=== PATIENT | female | born 1970 | race Caucasian/White ===

== ENCOUNTER 2018-01-01 08:15 | Inpatient (IN) | payer SELFPAY ==
[2018-01-01] VITALS (13 sets, daily range): BP systolic 106–128; BP diastolic 65–86
[~2018-01-01] VITALS: Ht 167.6 cm; Wt 64.7 kg
[~2018-01-01 08:15] MED LIST: AMOX1TAB61 PO; FLUC150T PO; FLUC200T PO; HYDR12.53 PO; LEVO75TA PO; METH4TAB2 PO; METR250T PO; MONT4TAB5 PO; TIZA4TAB PO; TRAM50TA PO
[2018-01-01] MEDS ORDERED: IV NORMAL SALINE 1,000ML 1,000 ML IV SCH (08:48)
--- NOTE | 2018-01-01 08:58 | PHYS DOC ---
Past History Past Medical History: Alcoholism, Pancreatitis, Other Past Surgical History: Cholecystectomy, Other Alcohol Use: Heavy Drug Use: None Adult General Chief Complaint Chief Complaint: WITHDRAWL HPI HPI Patient is a 47-year-old female who states that she is an alcoholic and is trying to taper down her drinking and believes that she is in alcohol withdrawal. She says that she was at [facility]'s emergency department 2 days ago and was there for a few hours and then sent home with Librium. She says that she was given Vivitrol recently (2 doses 2 weeks apart). She is concerned that her eyes appear to be jaundiced which she states has never happened before. She also has a history of chronic pancreatitis and is having some upper abdominal discomfort. She has had upper GI bleeding in the past which required "ovidio in my stomach" but denies any nausea, vomiting, hematemesis, rectal bleeding currently. She is status post cholecystectomy. Review of Systems Review of Systems Constitutional: Denies fever or chills [] +anxiety Eyes: Denies change in visual acuity, redness, or eye pain [] +jaundice HENT: Denies nasal congestion or sore throat [] Respiratory: Denies cough or shortness of breath [] Cardiovascular: No additional information not addressed in HPI [] GI: nausea, vomiting, bloody stools or diarrhea [] +upper abd pain : Denies dysuria or hematuria [] Musculoskeletal: Denies back pain or joint pain [] Integument: Denies rash or skin lesions [] Neurologic: Denies headache, focal weakness or sensory changes [] Endocrine: Denies polyuria or polydipsia [] All other systems were reviewed and found to be within normal limits, except as documented in this note. Allergies Allergies Allergies Coded Allergies Type Severity Reaction Last Updated Verified Sulfa (Sulfonamide Antibiotics) Allergy Unknown 01/01/18 Yes prochlorperazine Allergy Unknown 01/01/18 Yes Physical Exam Physical Exam Constitutional: Well developed, well nourished, no acute distress, non-toxic appearance. [] HENT: Normocephalic, atraumatic, bilateral external ears normal, oropharynx moist, no oral exudates, nose normal. [] Eyes: PERRLA, EOMI, no discharge. [] +scleral icterus Neck: Normal range of motion, no tenderness, supple, no stridor. [] Cardiovascular:no murmur [] +tachycardia Lungs & Thorax: Bilateral breath sounds clear to auscultation [] Abdomen: Bowel sounds normal, soft, no masses, no pulsatile masses. [] +ttp epigastric region Skin: Warm, dry, no erythema, no rash. [] Back: No tenderness, no CVA tenderness. [] Extremities: No tenderness, no cyanosis, no clubbing, ROM intact, no edema. [] Neurologic: Alert and oriented X 3, normal motor function, normal sensory function, no focal deficits noted. [] Psychologic: judgement normal, mood normal. [] appears somewhat anxious Current Patient Data Vital Signs Vital Signs Date Time Temp Pulse Resp B/P (MAP) Pulse Ox O2 Delivery O2 Flow Rate FiO2 01/01/18 08:30 98.4 111 18 97 Room Air EKG EKG [] Radiology/Procedures Radiology/Procedures [] Laboratory Tests Test 01/01/18 09:04 White Blood Count 5.3 x10^3/uL Red Blood Count 2.93 x10^6/uL Hemoglobin 10.0 g/dL Hematocrit 29.2 % Mean Corpuscular Volume 100 fL Mean Corpuscular Hemoglobin 34 pg Mean Corpuscular Hemoglobin Concent 34 g/dL Red Cell Distribution Width 21.9 % Platelet Count 142 x10^3/uL Neutrophils (%) (Auto) 70 % Lymphocytes (%) (Auto) 16 % Monocytes (%) (Auto) 12 % Eosinophils (%) (Auto) 2 % Basophils (%) (Auto) 0 % Neutrophils # (Auto) 3.7 x10^3uL Lymphocytes # (Auto) 0.8 x10^3/uL Monocytes # (Auto) 0.6 x10^3/uL Eosinophils # (Auto) 0.1 x10^3/uL Basophils # (Auto) 0.0 x10^3/uL Platelet Estimate Adequate Anisocytosis Slight Target Cells Occ Ovalocytes Occ Stomatocytes Mod Prothrombin Time 11.6 SEC Prothromb Time International Ratio 1.1 Sodium Level 136 mmol/L Potassium Level 2.5 mmol/L Chloride Level 100 mmol/L Carbon Dioxide Level 26 mmol/L Anion Gap 10 Blood Urea Nitrogen 4 mg/dL Creatinine 0.8 mg/dL Estimated GFR (Cockcroft-Gault) 77.6 BUN/Creatinine Ratio 5 Glucose Level 94 mg/dL Calcium Level 8.1 mg/dL Total Bilirubin 3.3 mg/dL Aspartate Amino Transf (AST/SGOT) 219 U/L Alanine Aminotransferase (ALT/SGPT) 59 U/L Alkaline Phosphatase 302 U/L Total Protein 6.1 g/dL Albumin 2.6 g/dL Albumin/Globulin Ratio 0.7 Lipase 61 U/L Serum Test, Qualitative Negative Current Medications Medications (Trade) Dose Ordered Sig/Chandan Route PRN Reason Start Time Stop Time Status Last Admin Dose Admin Fentanyl Citrate (Fentanyl 2ml Vial) 50 mcg PRN Q15MIN PRN IV PAIN GREATER THAN 3/10 01/01/18 09:00 01/02/18 08:59 01/01/18 10:30 Sodium Chloride 1,000 ml @ 1,000 mls/hr Q1H IV 01/01/18 08:48 01/01/18 09:47 DC 01/01/18 08:58 Ondansetron HCl (Zofran) 4 mg 1X ONCE IV 01/01/18 09:15 01/01/18 09:16 DC 01/01/18 08:59 Lorazepam (Ativan) 2 mg 1X ONCE IV 01/01/18 09:15 01/01/18 09:16 DC 01/01/18 08:59 Potassium Chloride (Klor-Con) 40 meq 1X ONCE PO 01/01/18 10:15 01/01/18 10:16 DC 01/01/18 10:30 Potassium Chloride 100 ml @ 50 mls/hr Q2H IV 01/01/18 10:00 01/01/18 13:59 01/01/18 10:30 Course & Med Decision Making Course & Med Decision Making Pertinent Labs and Imaging studies reviewed. (See chart for details) @1022 - Patient informed of lab results and agrees with the plan to be admitted. Dr. Laguerre accepts the ICU admission at [facility]. Dragon Disclaimer Dragon Disclaimer This electronic medical record was generated, in whole or in part, using a voice recognition dictation system. Departure Departure: Impression: Primary Impression: Alcohol withdrawal Additional Impressions: Tachycardia Hypokalemia Disposition: ADMITTED INPATIENT Admitting Physician: Ray Laguerre Condition: GUARDED Referrals: PCP,NO (PCP) Problem Qualifiers ZACKARY BECK DO Jan 01, 2018 08:58
[2018-01-01] MEDS ORDERED: ONDANSETRON PF 4 MG/2 ML VIAL. IV ONE (09:15)
[2018-01-01] MEDS ORDERED: LORazepam 2 MG/ML VIAL IV ONE ×2 (09:15→11:00)
[2018-01-01 09:20] LABS: BASO % 0 % (0-3); EOS # 0.1 x10^3/uL (0.0-0.7); EOS % 2 % (0-3); HEMATOCRIT 29.2 % (36.0-47.0); LYMPH # 0.8 x10^3/uL (1.0-4.8); LYMPH % 16 % (24-48); MEAN CORPUSCULAR HEMOGLOBIN 34 pg (25-35); MEAN CORPUSCULAR HGB CONC 34 g/dL (31-37); MEAN CORPUSCULAR VOLUME 100 fL (79-100); MONO # 0.6 x10^3/uL (0.0-1.1); MONO % 12 % (0-9); NEUT # 3.7 x10^3uL (1.8-7.7); NEUT % 70 % (31-73); PLATELET COUNT 142 x10^3/uL (140-400); RED BLOOD COUNT 2.93 x10^6/uL (3.50-5.40); RED CELL DISTRIBUTION WIDTH 21.9 % (11.5-14.5); WHITE BLOOD COUNT 5.3 x10^3/uL (4.0-11.0)
[2018-01-01 09:23] LABS: PREG TEST PT QUAL NEGATIVE (NEG)
[2018-01-01 09:28] LABS: ALBUMIN 2.6 g/dL (3.4-5.0); ALBUMIN/GLOBULIN RATIO 0.7 (1.0-1.7); CALCIUM 8.1 mg/dL (8.5-10.1); CREATININE 0.8 mg/dL (0.6-1.0); GFR 77.6; TOTAL PROTEIN 6.1 g/dL (6.4-8.2)
[2018-01-01 09:32] LABS: POTASSIUM 2.5 mmol/L (3.5-5.1); TOTAL BILIRUBIN 3.3 mg/dL (0.2-1.0)
[2018-01-01 10:05] LABS: ANISOCYTOSIS SLIGHT; OVALOCYTES OCC; PLT ESTIMATE ADEQUATE (ADEQUATE); STOMATOCYTES MOD; TARGET CELLS OCC
[2018-01-01] MEDS ORDERED: POTASSIUM CHLORIDE 20 MEQ TABLET.ER. PO ONE (10:15)
[2018-01-01] MEDS: POTASSIUM CHLORIDE 20MEQ 100 ML IV SCH ×2 (10:30→13:57)
[2018-01-01 10:38] LABS: BACTERIA,URINE 0 /HPF (0-FEW); BILIRUBIN,URINE NEG (NEG); CLARITY,URINE CLEAR; COLOR,URINE AMBER; GLUCOSE,URINE NEG (NEG); NITRITE,URINE NEG (NEG); RBC,URINE 0 /HPF (0-2); SQUAMOUS EPITHELIAL CELL,UR OCC /LPF; UROBILINOGEN,URINE 2 mg/dL (0.2 mg/dL); WBC,URINE 0 /HPF (0-4)
[2018-01-01] MEDS ORDERED: ONDANSETRON PF 4 MG/2 ML VIAL. IV PRN (10:45)
[2018-01-01] MEDS ORDERED: ONDANSETRON ODT 4 MG TAB.RAPDIS PO PRN (12:30)
[2018-01-01] MEDS: chlordiazePOXIDE HCL 25 MG CAPSULE PO PRN ×3 (12:32→21:48)
[2018-01-01] MEDS: MVI, ADULT NO.4 WITH VIT K 10 ML, THIAMINE 100 MG, FOLIC ACID 1 MG in IV NORMAL SALINE ... IV SCH ×4 (12:33)
[2018-01-01] MEDS: HYDROmorphone PF 2 MG/ML VIAL IV PRN ×3 (12:34→21:49)
[2018-01-01] MEDS ORDERED: CHLO25CA9 PO (15:10)
[2018-01-01] MEDS: LORazepam 2 MG/ML VIAL IV PRN ×2 (15:27→19:10)
[2018-01-01] MEDS: POTASSIUM CL 40MEQ D5-0.45NACL 1,000 ML IV PRN (21:48)
[2018-01-02] VITALS (17 sets, daily range): BP systolic 119–146; BP diastolic 70–97
[2018-01-02] MEDS: LORazepam 2 MG/ML VIAL IV PRN ×11 (01:02→22:52)
[2018-01-02] MEDS: HYDROmorphone PF 2 MG/ML VIAL IV PRN ×4 (03:37→21:07)
[2018-01-02] MEDS: chlordiazePOXIDE HCL 25 MG CAPSULE PO PRN ×5 (03:37→19:43)
[2018-01-02 06:21] LABS: BASO % 1 % (0-3); EOS # 0.2 x10^3/uL (0.0-0.7); EOS % 4 % (0-3); HEMATOCRIT 29.1 % (36.0-47.0); HEMOGLOBIN 9.6 g/dL (12.0-15.5); LYMPH # 1.3 x10^3/uL (1.0-4.8); LYMPH % 26 % (24-48); MEAN CORPUSCULAR HEMOGLOBIN 34 pg (25-35); MEAN CORPUSCULAR HGB CONC 33 g/dL (31-37); MEAN CORPUSCULAR VOLUME 103 fL (79-100); MONO # 0.5 x10^3/uL (0.0-1.1); MONO % 9 % (0-9); NEUT % 60 % (31-73); PLATELET COUNT 124 x10^3/uL (140-400); RED BLOOD COUNT 2.83 x10^6/uL (3.50-5.40); WHITE BLOOD COUNT 4.9 x10^3/uL (4.0-11.0)
[2018-01-02 06:29] LABS: ALBUMIN 2.4 g/dL (3.4-5.0); ALBUMIN/GLOBULIN RATIO 0.7 (1.0-1.7); CALCIUM 8.1 mg/dL (8.5-10.1); CREATININE 0.6 mg/dL (0.6-1.0); GFR 108.1; MAGNESIUM 1.2 mg/dL (1.8-2.4); POTASSIUM 3.6 mmol/L (3.5-5.1); TOTAL BILIRUBIN 3.1 mg/dL (0.2-1.0); TOTAL PROTEIN 5.8 g/dL (6.4-8.2)
[2018-01-02] MEDS ORDERED: MAGNESIUM SULFATE 2GM 50 ML IV ONE (07:30)
[2018-01-02] MEDS ORDERED: POTASSIUM CHLORIDE 20 MEQ TABLET.ER. PO ONE (07:30)
[2018-01-02] MEDS: MVI, ADULT NO.4 WITH VIT K 10 ML, THIAMINE 100 MG, FOLIC ACID 1 MG in IV NORMAL SALINE ... IV SCH ×8 (08:32→08:41)
--- NOTE | 2018-01-02 13:20 | HP ---
ADMIT DATE: 01/01/2018 HISTORY OF PRESENT ILLNESS: The patient is a 47-year-old female patient, who was seen yesterday in the Emergency Room with a complaint of alcohol withdrawal. She apparently was seen at [facility] Emergency Department 2 days ago and was there for few hours, was sent home on Librium. She was apparently given Vivitrol recently 2 doses 2 weeks apart. She is concerned that her eyes appear to be jaundiced, which she state has never happened before. She also has history of chronic pancreatitis and is having some upper abdominal discomfort. She has had upper GI bleeding before, which required ovidio in her stomach, but denied any nausea, vomiting, hematemesis, melena or hematochezia. She is status post cholecystectomy. She was extensively evaluated in the Emergency Room, was found to have hypokalemia, was on alcohol withdrawal and therefore was admitted to replenish her potassium and to continue with alcohol withdrawal protocol. PAST MEDICAL HISTORY: Significant for alcoholism. The patient said that she has been drinking alcohol heavily for the last 2 years since her divorce. She is also known to have chronic pancreatitis. PAST SURGICAL HISTORY: Significant for tonsillectomy and cholecystectomy. ALLERGIES: She is allergic to SULFA DRUGS and PROCHLORPERAZINE. MEDICATIONS: She is currently on following medication: She is on chlordiazepoxide 25 mg 3 times a day. FAMILY HISTORY: Unremarkable. SOCIAL HISTORY: She is . She has 2 sons and 1 daughter. She continues to drink. She is also a smoker. PHYSICAL EXAMINATION: GENERAL: On examining her; she looked slightly pale, jaundiced, no cyanosis, or thyromegaly. No jugular venous distension. No lower limb edema. VITAL SIGNS: Her heart rate was 95, blood pressure was 115/77, temperature was 98.4, respiratory rate was 18 and oxygen saturation was 97% on room air. The rest of clinical exam was unremarkable. LABORATORY DATA: Showed white cell count 5300, hemoglobin 10, hematocrit 29, MCV 100, and platelet count of 142,000. Her serum sodium was 136, potassium 2.5, chloride 100, bicarbonate 26, anion gap of 10, BUN 4, creatinine 0.8, estimated GFR was 77 mL per minute. Her glucose was 94, calcium was 8.1. Total bilirubin was 3.3, AST was elevated 219, ALT was 59, alkaline phosphatase were 302. Total protein was 6.1, albumin was 2.6. Serum lipase was 61. Her prothrombin time was 11.6, INR 1.1. Urinalysis was essentially unremarkable and urine toxicology screen showed elevated blood alcohol level of 111 mg/dL. ASSESSMENT AND PLAN: She apparently was admitted with hypokalemia, alcohol withdrawal syndrome as well as chronic pancreatitis, although her serum lipase was normal. She was started on alcohol withdrawal protocol potassium. Check also magnesium and replenish that as needed. ALVARADO CASTANEDA MD DR: LUCILA/joann JOB#: [id number] / [id number]
[2018-01-02] MEDS: POTASSIUM CL 40MEQ D5-0.45NACL 1,000 ML IV PRN (19:52)
[2018-01-02] MEDS ORDERED: diazePAM 5 MG TABLET PO PRN (20:15)
[2018-01-02] MEDS: diazePAM 5 MG TABLET PO PRN (21:06)
[2018-01-02] MEDS: diphenhydrAMINE 50 MG/ML VIAL IVP PRN (22:00)
[2018-01-02] MEDS: HALOPERIDOL LACT 5 MG/ML VIAL. IM PRN (22:01)
[2018-01-02] MEDS: NICOTINE 21MG PATCH. TD SCH (22:03)
[2018-01-03] VITALS (9 sets, daily range): BP systolic 118–142; BP diastolic 74–97
[2018-01-03] MEDS: LORazepam 2 MG/ML VIAL IV PRN ×4 (02:16→23:18)
[2018-01-03] MEDS: HYDROmorphone PF 2 MG/ML VIAL IV PRN ×3 (02:17→19:22)
[2018-01-03] MEDS: HALOPERIDOL LACT 5 MG/ML VIAL. IM PRN (03:37)
[2018-01-03] MEDS: diphenhydrAMINE 50 MG/ML VIAL IVP PRN (03:37)
[2018-01-03 06:41] LABS: CALCIUM 8.5 mg/dL (8.5-10.1); CREATININE 0.7 mg/dL (0.6-1.0); GFR 90.5; MAGNESIUM 1.8 mg/dL (1.8-2.4); POTASSIUM 4.1 mmol/L (3.5-5.1)
[2018-01-03] MEDS: chlordiazePOXIDE HCL 25 MG CAPSULE PO PRN ×3 (09:10→19:21)
[2018-01-03] MEDS: diazePAM 5 MG TABLET PO PRN ×2 (09:10→12:09)
[2018-01-03] MEDS: NICOTINE 21MG PATCH. TD SCH (09:11)
[2018-01-03] MEDS: MVI, ADULT NO.4 WITH VIT K 10 ML, THIAMINE 100 MG, FOLIC ACID 1 MG in IV NORMAL SALINE ... IV SCH ×4 (09:26)
[2018-01-03] MEDS: CYCLOBENZAPRINE 10 MG TABLET. PO PRN ×2 (09:27→15:15)
--- NOTE | 2018-01-03 10:14 | PN ---
DATE: 01/03/2018 SUBJECTIVE: The patient is resting slightly propped up in bed, in no apparent respiratory distress. She is apparently more confused today. Has visual hallucination. Continues to complain of pain in her back. PHYSICAL EXAMINATION: GENERAL: When I examined her today, she looked pale. She is slightly jaundiced. No cyanosis or thyromegaly. No jugular venous distention. No limb edema. VITAL SIGNS: Her heart rate was 97, blood pressure was 131/82, temperature was 98.2, respiratory rate was 18, and oxygen saturation was 98% on room air. HEAD, EYES, EARS, NOSE, AND THROAT: Showed normocephalic, atraumatic. NECK: Supple. HEART: Showed normal first and second sounds. No gallop, rub, or murmur. CHEST: Clear to auscultation. No crepitation or rhonchi. ABDOMEN: Distended, soft, nontender. No guarding or rigidity. No organomegaly. Hernial orifices intact. Bowel sounds normal. NEUROLOGIC: She is awake, but somewhat seemed to be more confused today; however, all cranial nerves intact. She moves extremities spontaneously. Her intake over the last 24 hours is 4450, output was 1200. LABORATORY DATA: Serum sodium was 137, potassium 4.1, chloride 104, bicarbonate 31, anion gap of 2, BUN 4, creatinine 0.7. Estimated GFR was 90 mL per minute. His glucose was 103, calcium was 8.5, magnesium was 1.8. Her white cell count was 4900, hemoglobin 10, hematocrit 29, MCV 103, and platelet count 224,000. ASSESSMENT: 1. Alcohol withdrawal. 2. Hypokalemia, resolved. 3. Chronic pancreatitis. 4. Crohn's disease. PLAN: To continue with current plan of management with alcohol withdrawal protocol, pain management and banana bag. ALVARADO CASTANEDA MD DR: LUCILA/joann JOB#: [id number] / [id number]
[2018-01-03] MEDS: POTASSIUM CL 40MEQ D5-0.45NACL 1,000 ML IV PRN (17:51)
[2018-01-04 00:34] VITALS: BP 122/71
[2018-01-04] MEDS: HYDROmorphone PF 2 MG/ML VIAL IV PRN ×2 (00:40→06:20)
[2018-01-04 02:16] VITALS: BP 133/91
[2018-01-04 04:23] VITALS: BP 80/72
[2018-01-04 06:29] VITALS: BP 128/87
[2018-01-04 07:42] LABS: ALBUMIN 2.5 g/dL (3.4-5.0); ALBUMIN/GLOBULIN RATIO 0.7 (1.0-1.7); CALCIUM 8.7 mg/dL (8.5-10.1); CREATININE 0.6 mg/dL (0.6-1.0); GFR 108.1; POTASSIUM 4.4 mmol/L (3.5-5.1); TOTAL BILIRUBIN 2.4 mg/dL (0.2-1.0); TOTAL PROTEIN 6.2 g/dL (6.4-8.2)
[2018-01-04 08:39] VITALS: BP 121/72
[2018-01-04 10:00] VITALS: BP 128/72
[2018-01-04] MEDS ORDERED: KETOROLAC 30 MG/ML VIAL. IV ONE (10:00)
[2018-01-04] MEDS: NICOTINE 21MG PATCH. TD SCH (10:10)
[2018-01-04] MEDS ORDERED: OXYC5CAP PO (11:51)
--- NOTE | 2018-01-04 12:44 | DS ---
DATE OF DISCHARGE: 01/01/2018 HOSPITAL COURSE: The patient is a 47-year-old female patient who was admitted with alcohol withdrawal. She also complained of abdominal pain and in fact she was jaundiced when she came to the Emergency Room. She was found to be extremely hypokalemic with potassium of 2.5 mEq per liter. The patient was admitted and was started on a banana bag and alcohol withdrawal protocol. We replenished her potassium and magnesium. She has also severe hypomagnesemia and she did very well. Her potassium is now back to 4.4. Magnesium is 1.8. Her liver enzymes are still elevated, but trending down. Her bilirubin is down from 3.3 to 2.4. Her serum lipase has been stable and will below the lower limit of normal and a decision was made to discharge her home to continue on a tapering course of Librium with an emphasis on quitting alcohol. PHYSICAL EXAMINATION: GENERAL: When I saw her this morning, she was resting slightly propped up in bed, in no apparent respiratory distress. She was pale, jaundiced, but not cyanosis. No lymphadenopathy, no thyromegaly. No jugular venous distention. No lower limb edema. VITAL SIGNS: Her heart rate was 107, blood pressure was 128/72, temperature was 98.7, respiratory rate was 20, and oxygen saturation was 99% on room air. HEAD, EYES, EARS, NOSE AND THROAT: Showed normocephalic, atraumatic. NECK: Supple. HEART: Showed normal first and second heart sounds with no gallop, rub, or murmur. CHEST: Clear to auscultation. No crepitation or rhonchi. ABDOMEN: Distended, soft, nontender. No guarding or rigidity. No organomegaly. All hernial orifices intact. Bowel sounds normal. NEUROLOGIC: She is awake, alert, responding appropriately. Cranial nerves intact. She moves extremities without difficulty. She ambulates without assistance or assistive devices. LABORATORY DATA: Her lab work showed a white cell count of 4900, hemoglobin 9.6, hematocrit 29, MCV 103, and platelet count of 124,000 with a manual differential showing 60% polymorphs, 6% lymphocytes, and 9% monocytes. Her prothrombin time was 11.6, INR 1.1. Her chemistry this morning showed a serum sodium of 138, potassium 4.4, chloride 104, bicarbonate 28, anion gap of 6, BUN 4, creatinine 0.6. Estimated GFR was 108 mL per minute. Her glucose was 106, calcium was 8.7. Total bilirubin 2.4. AST and alkaline phosphatase elevated. ALT was normal. Her total protein was 6.2, albumin was 2.5, lipase was 84. Urinalysis unremarkable. Tox screen showed blood alcohol level was 111 on admission. DISCHARGE MEDICATIONS: She was discharged home to continue on a tapering course of Librium 50 mg once a day for 2 days and oxycodone 5 mg 3 times a day for 5 days. FINAL DISCHARGE DIAGNOSES: 1. Alcohol withdrawal, resolved. 2. Hypokalemia, resolved. 3. Chronic pancreatitis, stable. 4. Crohn's disease, stable. ALVARADO CASTANEDA MD DR: LUCILA/joann JOB#: [id number] / [id number]
== END 2018-01-04 12:05 | disposition home or self-care (01) | DRG 641 ==
LOC: ER 08:15 → ICU 10:23 → ER 11:11 → ICU 01-03 17:35
PROVIDERS: ADMIT Internal Medicine; ATTEND Internal Medicine
DX: E87.6 Hypokalemia (principal); F10.239 Alcohol dependence with withdrawal, unspecified; K86.1 Other chronic pancreatitis; K50.90 Crohn's disease, unspecified, without complications; R00.0 Tachycardia, unspecified; Y90.5 Blood alcohol level of 100-119 mg/100 ml; E83.42 Hypomagnesemia; F17.200 Nicotine dependence, unspecified, uncomplicated; Z90.49 Acquired absence of other specified parts of digestive tract; Z88.2 Allergy status to sulfonamides; Z88.8 Allergy status to other drugs, medicaments and biological substances
CPT/HCPCS: 36415; 80048; 80053; 81001; 83690; 83735; 84703; 85025; 85610; 87641; 96361; 96374; 96375; 96376; G0480; J1170; J1200; J1630; J1885; J2060; J2405; J3010; J3475; J3480; J7042; 99285-25; J7030

== ENCOUNTER 2018-03-12 18:39 | Inpatient (IN) | payer SELFPAY ==
[~2018-03-12] VITALS: Ht 167.6 cm; Wt 61.5 kg
[~2018-03-12 18:39] MED LIST changes: +CHLO25CA9 PO; +OXYC5CAP PO
--- NOTE | 2018-03-12 18:48 | ED.ADGEN ---
Past History Past Medical History: Alcoholism, Pancreatitis, Other Past Surgical History: Cholecystectomy, Other Alcohol Use: Heavy Drug Use: None Adult General Chief Complaint Chief Complaint ".. I am hurting so bad.. It my pancreatitis.. and I been trying to stop drinking.. I was at [employer]and had quit drinking.. but I started again.. " HPI HPI Patient is a 47 year old female who presents with abdomen pain, excessive chronic alcohol abuse and past hx of alcohol pancreatitis. Does have a history of alcohol withdrawal seizures. Patient denies any trauma. Patient denies any intake bad food. Patient denies any immunosuppression. Patient has had episodes of severe dehydration to nausea and vomiting after onset pancreatitis. Patient currently rates her pain as 10 out of 10 in epigastric area. Multiple episodes of dry vomiting. Pt. admits to alcohol use today. Review of Systems Review of Systems Constitutional: Denies fever or chills [] Eyes: Denies change in visual acuity, redness, or eye pain [] HENT: Denies nasal congestion or sore throat [] Respiratory: Denies cough or shortness of breath [] Cardiovascular: No additional information not addressed in HPI [] GI: Complaints of severe abdominal pain, nausea, vomiting, denies bloody stools , has had multiple diarrhea stools. : Denies dysuria or hematuria [] Musculoskeletal: Denies back pain or joint pain [] Integument: Denies rash or skin lesions [] Neurologic: Denies headache, focal weakness or sensory changes [] Endocrine: Denies polyuria or polydipsia [] All other systems were reviewed and found to be within normal limits, except as documented in this note. Family History Family History Noncontributory Current Medications Current Medications See nursing for home medications Allergies Allergies Allergies Coded Allergies Type Severity Reaction Last Updated Verified Sulfa (Sulfonamide Antibiotics) Allergy Intermediate 01/02/18 Yes prochlorperazine Allergy Intermediate 01/02/18 Yes Physical Exam Physical Exam Constitutional: incute distress, intoxicated in appearance. [] HENT: Normocephalic, atraumatic, bilateral external ears normal, oropharynx dry, , no oral exudates, nose normal. [] Eyes: PERRLA, EOMI, conjunctiva normal, no discharge. [] Neck: Normal range of motion, no tenderness, supple, no stridor. [] Cardiovascular: Tachycardia Heart rate regular rhythm, no murmur [] Lungs & Thorax: Bilateral breath sounds equal scattered wheezes throughout on auscultation [] Abdomen: Bowel sounds hyperactive, soft, R Epigastric pain and tenderness, no masses, no pulsatile masses. [] Skin: Warm, dry, no erythema, no rash. [] Back: No tenderness, no CVA tenderness. [Complaints of mid back pain Extremities: No tenderness, no cyanosis, no clubbing, ROM intact, no edema. [] No psoas or operators sign. Neurologic: Alert and oriented X 3, normal motor function, normal sensory function, no focal deficits noted. [] Psychologic: Affect is tearful, depressed,, judgement normal, mood depressed Current Patient Data Vital Signs Vital Signs Date Time Temp Pulse Resp B/P (MAP) Pulse Ox O2 Delivery O2 Flow Rate FiO2 03/12/18 18:40 98.4 105 20 94 Room Air EKG EKG My interpretation EKG shows a sinus rhythm at 99 bpm. No findings acute STEMI of contralateral changes.[] Radiology/Procedures Radiology/Procedures My interpretation of acute abdomen film shows no acute cardiopulmonary findings. No free air in the diaphragm. Clips in right upper quadrant. Minimal stool. [] Course & Med Decision Making Course & Med Decision Making Pertinent Labs and Imaging studies reviewed. (See chart for details) Pt. to be admitted to - monitor for on alcohol withdrawal. [] Final Impression Final Impression 1. Abd. Pain 2. Alcohol abuse[] 239 3. Anemia-macrocytic 11.4 4. Hypokalemia- critical 2.9 5. Elevated AST/ALT/Alk Phos 424/90/383 6. Malnutrition Alb. 2.8 7. Elevated Bili 2.1/1.8 8. Hx Alcohol withdrawal seizures 9. Pancreatitis 10. Colitis/ 11. Diarrhea Dragon Disclaimer Dragon Disclaimer This electronic medical record was generated, in whole or in part, using a voice recognition dictation system. JORGE BIRCH MD Mar 12, 2018 18:48
--- NOTE | 2018-03-12 18:57 | EKG ---
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
[2018-03-12] MEDS ORDERED: MORPHINE SULFATE 10 MG/ML SYRINGE. SQ ONE (19:15)
[2018-03-12] MEDS ORDERED: ONDANSETRON PF 4 MG/2 ML VIAL. IV ONE (19:15)
[2018-03-12] MEDS ORDERED: FAMOTIDINE 20 MG/2 ML VIAL IVP ONE (19:15)
[2018-03-12] MEDS ORDERED: CONTRAST GIVEN MC PRN (19:30)
[2018-03-12] MEDS ORDERED: IOHEXOL 240 MG/ML 50ML VIAL. PO ONE (19:30)
[2018-03-12] MEDS ORDERED: IOHEXOL 300 MG/ML 75 ML VIAL. IV ONE (19:30)
[2018-03-12] MEDS ORDERED: MVI, ADULT NO.4 WITH VIT K 10 ML, FOLIC ACID SYRINGE for ER 1 MG, THIAMINE INJ 100 MG i... IV ONE ×4 (19:30)
[2018-03-12 19:38] LABS: BASO % 1 % (0-3); EOS # 0.1 x10^3/uL (0.0-0.7); EOS % 2 % (0-3); HEMATOCRIT 34.2 % (36.0-47.0); HEMOGLOBIN 11.4 g/dL (12.0-15.5); LYMPH # 1.1 x10^3/uL (1.0-4.8); LYMPH % 18 % (24-48); MEAN CORPUSCULAR HEMOGLOBIN 35 pg (25-35); MEAN CORPUSCULAR HGB CONC 33 g/dL (31-37); MEAN CORPUSCULAR VOLUME 106 fL (79-100); MONO # 0.5 x10^3/uL (0.0-1.1); MONO % 8 % (0-9); NEUT # 4.3 x10^3uL (1.8-7.7); NEUT % 72 % (31-73); PLATELET COUNT 142 x10^3/uL (140-400); RED BLOOD COUNT 3.22 x10^6/uL (3.50-5.40); RED CELL DISTRIBUTION WIDTH 18.6 % (11.5-14.5); WHITE BLOOD COUNT 5.9 x10^3/uL (4.0-11.0)
[2018-03-12 19:55] LABS: ALBUMIN 2.8 g/dL (3.4-5.0); CALCIUM 8.4 mg/dL (8.5-10.1); CREATININE 0.6 mg/dL (0.6-1.0); DIRECT BILIRUBIN 1.8 mg/dL (0.0-0.2); GFR 108.1; TOTAL BILIRUBIN 2.1 mg/dL (0.2-1.0); TOTAL PROTEIN 7.2 g/dL (6.4-8.2)
[2018-03-12 19:57] LABS: POTASSIUM 2.9 mmol/L (3.5-5.1)
[2018-03-12] MEDS ORDERED: LORazepam 2 MG/ML VIAL IV PRN (20:00)
[2018-03-12] MEDS: IV RINGERS SOLUTION,LACTATED 1,000 ML IV SCH (20:00)
[2018-03-12] MEDS ORDERED: ONDANSETRON PF 4 MG/2 ML VIAL. IV PRN (20:00)
[2018-03-12] MEDS: IPRATRPIUM/ALBUTEROL 0.5/2.5MG 3 ML NEBU. NEB SCH (20:00)
[2018-03-12] MEDS ORDERED: POTASSIUM CL 40MEQ IN 0.9%NACL 1,000 ML IV ONE (20:15)
[2018-03-12] MEDS: FAMOTIDINE 20 MG/2 ML VIAL IVP SCH (21:00)
[2018-03-12 21:17] LABS: BARBITURATES NEG (NEG); BENZODIAZEPINES NEG (NEG); CANNABINOIDS NEG (NEG); COCAINE NEG (NEG); METHADONE NEG (NEG); OPIATES POS (NEG); PHENCYCLIDINE NEG (NEG)
[2018-03-12 21:18] LABS: AMPHETAMINE/METHAMPHETAMINE NEG (NEG)
[2018-03-12 21:22] LABS: CLARITY,URINE HAZY; COLOR,URINE AMBER; GLUCOSE,URINE NEG (NEG)
[2018-03-12 21:23] LABS: BILIRUBIN,URINE SMALL (NEG); NITRITE,URINE NEG (NEG); UROBILINOGEN,URINE 4 mg/dL (0.2 mg/dL)
[2018-03-12 21:24] LABS: BACTERIA,URINE MOD /HPF (0-FEW); HYALINE CASTS, URINE OCC /HPF; RBC,URINE OCC /HPF (0-2); SQUAMOUS EPITHELIAL CELL,UR FEW /LPF
[2018-03-12 21:58] VITALS: BP 122/84
--- NOTE | 2018-03-12 22:14 | RAD ---
Exam performed: CT scan of the abdomen and pelvis with contrast Clinical Indication: Abdominal pain, nausea and vomiting with diarrhea for 3 days, history of cholecystectomy embolism. Pancreatitis CT abdomen and pelvis from May 30, 2014 None available Technique: Contiguous helical acquisitions are obtained from the lung bases to the pelvis during intravenous administration of [75 cc of Omnipaque 300]. In addition oral contrast was also given. Sagittal and coronal reformatted images were obtained and reviewed. CT abdomen findings: The lung bases appear essentially clear. Visualized heart is normal. Diffuse hepatic steatosis with hepatomegaly. No focal lesions. The spleen and pancreas appears unremarkable. Cholecystectomy Both adrenal glands and bilateral kidneys appear normal with symmetric excretion of contrast via both kidneys. The small bowel loops appear nondilated and unremarkable. Aorta is normal in caliber. There is no retroperitoneal lymphadenopathy or mass lesions. No bowel related inflammatory stranding is noted. Visualized appendix appears normal. No obvious stranding is seen in the pericecal region. CT pelvis findings: The pelvic bowel loops are nondilated and unremarkable. The urinary bladder is well distended and normal . Diffuse wall thickening of the large bowel predominantly involving the distal transverse, descending and sigmoid colon. Interrogation of bone windows demonstrates no obvious bony abnormality. Sagittal and coronal reformatted images were obtained and reviewed which demonstrate no additional findings. Impression abdomen and pelvis : 1. Diffuse hepatic steatosis with hepatomegaly. 2. Diffuse wall thickening of the colon throughout. Findings may be related to inadequate distention, however, early diverticulitis/colitis not excluded. Correlate clinically PQRS Compliance Statement: One or more of the following individualized dose reduction techniques were utilized for this examination: 1. Automated exposure control 2. Adjustment of the mA and/or kV according to patient size 3. Use of iterative reconstruction technique Electronically signed by: Savannah Gutiérrez MD (03/12/2018 10:10 PM) [facility]
[2018-03-12] MEDS ORDERED: cloNIDine HCL 0.1 MG TABLET PO PRN (23:45)
[2018-03-12] MEDS ORDERED: diphenhydrAMINE 50 MG/ML VIAL IVP PRN (23:45)
[2018-03-12] MEDS ORDERED: chlordiazePOXIDE HCL 25 MG CAPSULE PO PRN (23:45)
--- NOTE | 2018-03-12 23:57 | RAD ---
ACUTE ABDOMEN SERIES Indication: Abdominal pain nausea and vomiting for 3 days Date of service: 03/12/2018 .Comparison: none available Procedure: PA chest and upright and supine abdomen views are obtained. Findings: Chest: Cardiac size and pulmonary vessels are normal. Pneumonia, pneumothorax or pleural effusion are not present. Abdomen: No evidence of free air is present. Gas pattern is normal . Incidental pelvic phleboliths Impression: Normal Chest . Normal abdomen without obstruction, ileus or free air . If indicated, CT scan of the abdomen would be useful for further evaluation. Electronically signed by: Savannah Gutiérrez MD (03/12/2018 11:53 PM) [facility]
[2018-03-13] MEDS: LORazepam 1 MG TABLET PO SCH ×5 (00:24→20:09)
[2018-03-13] MEDS ORDERED: Influenza vaccine per PROTOCOL. MC PRN (01:00)
--- NOTE | 2018-03-13 03:04 | NUR ---
The patient, VANDANA ROY, 47 y/o, F admitted by MARY BOLDEN DO, was given written information regarding hospital policies, unit procedures and contact persons. Valuables were checked and left with patient. Admission assessment completed, IV fluids restarted. Pt admitted with abdominal pain and hypokalemia. Pt states she has been vomiting for 5 days but has not vomited since admission. She says she also has stomach pain, headache and back pain. She states she feels anxious and shaky and appears agitated. Pt has history of C-diff. Initial bowel movement was small and formed and rejected by lab for sample. Following stool is loose and sent to lab for testing.
[2018-03-13] MEDS: IV RINGERS SOLUTION,LACTATED 1,000 ML IV SCH ×4 (04:17→20:09)
[2018-03-13] MEDS: IPRATRPIUM/ALBUTEROL 0.5/2.5MG 3 ML NEBU. NEB SCH ×3 (04:49→16:27)
[2018-03-13 05:25] VITALS: BP 110/69
[2018-03-13] MEDS: chlordiazePOXIDE HCL 25 MG CAPSULE PO PRN ×4 (06:08→14:05)
[2018-03-13 06:59] LABS: CALCIUM 7.7 mg/dL (8.5-10.1); CREATININE 0.6 mg/dL (0.6-1.0); GFR 108.1
[2018-03-13 07:03] LABS: POTASSIUM 2.7 mmol/L (3.5-5.1)
[2018-03-13 07:04] LABS: BASO % 1 % (0-3); EOS # 0.1 x10^3/uL (0.0-0.7); EOS % 1 % (0-3); HEMATOCRIT 29.8 % (36.0-47.0); HEMOGLOBIN 9.9 g/dL (12.0-15.5); LYMPH # 1.4 x10^3/uL (1.0-4.8); LYMPH % 28 % (24-48); MEAN CORPUSCULAR HEMOGLOBIN 36 pg (25-35); MEAN CORPUSCULAR HGB CONC 33 g/dL (31-37); MEAN CORPUSCULAR VOLUME 106 fL (79-100); MONO # 0.4 x10^3/uL (0.0-1.1); MONO % 7 % (0-9); NEUT # 3.2 x10^3uL (1.8-7.7); NEUT % 63 % (31-73); PLATELET COUNT 105 x10^3/uL (140-400); RED BLOOD COUNT 2.81 x10^6/uL (3.50-5.40); RED CELL DISTRIBUTION WIDTH 18.3 % (11.5-14.5); WHITE BLOOD COUNT 5.1 x10^3/uL (4.0-11.0)
[2018-03-13 08:11] LABS: FECAL OB PT NEGATIVE (NEG)
[2018-03-13] MEDS: POTASSIUM CHLORIDE 20MEQ 100 ML IV SCH ×4 (08:19→18:22)
[2018-03-13] MEDS: FAMOTIDINE 20 MG/2 ML VIAL IVP SCH ×2 (08:19→20:13)
[2018-03-13] MEDS: MORPHINE SULFATE 10 MG/ML SYRINGE. SQ PRN ×2 (08:26→20:02)
[2018-03-13] MEDS ORDERED: MVI, ADULT NO.4 WITH VIT K 10 ML, FOLIC ACID SYRINGE for ER 1 MG, THIAMINE INJ 100 MG i... IV SCH ×4 (09:00)
[2018-03-13] MEDS: MVI, ADULT NO.4 WITH VIT K 10 ML, THIAMINE INJ 100 MG, FOLIC ACID INJ 1 MG in IV NORMAL... IV SCH ×4 (10:17)
[2018-03-13 11:44] VITALS: BP 119/76
[2018-03-13 15:08] VITALS: BP 110/75
[2018-03-13 15:20] LABS: CALCIUM 7.6 mg/dL (8.5-10.1); CREATININE 0.7 mg/dL (0.6-1.0); GFR 90.5
--- NOTE | 2018-03-13 16:00 | PDOC1 ---
History of Present Illness History of Present Illness 47/F presented to ED complaining of abdominal pain, nausea and vomitting. Patient has history of alcoholism admits to drinking heavily the past two years after a divorce. She was inpatient here in December for etoh withdrawal, has history of withdrawal seizures. Also has history of pancreatitis and UGIB which required stomach stapling. She says she's had loose stools with incontinence for about two weeks, she thinks she has C. diff again. Complained of severe epigastric pain with multiple episodes nonbloody emesis, was dry heaving in ED. Drank at least a pint of liquor yesterday last drink approximately 3pm. No travel or bad food exposure, no blood in stool or emesis. Her serum alcohol level was 239, Hb 11.4 macrocytic, K+ 2.9, LFTs increased and albumin 2.8. EKG was NSR 99bpm no ST-T changes, AAS unremarkable , CT abdomen/pelvis with hepatic steatosis and colon wall thickening possibly early colitis. She was admitted for pain/nausea control and to monitor for signs of withdrawal. RN reports patient has been sleeping no nausea or vomitting. Patient says she feels exhausted, still with some epigastric discomfort and intermittent mild nausea. Patient has tremor denies anxiety. 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 See HPI for pertinent positives and negative responses, other antonio all other systems are negative, non pertinent or non contributory Constitutional: Sweats, Weakness, Malaise Eyes: No: Eye Pain, Loss of vision ENT: No: Ear pain, Nose pain, Nose congestion Respiratory: No: Cough, Shortness of breath, Wheezing Cardiovascular: No: Chest Pain, Palpitations Gastrointestinal: YES: Nausea, Vomiting, Abdominal Pain, Diarrhea; No: Melena, Hematochezia Musculoskeletal: No: Joint Pain, Joint Swelling, Muscle Pain SKIN: YES: Diaphoretic; No: Rash Neurological: YES: Headaches, Numbness/Tingling (toes), Tremors; No: Memory Loss Medications Current Medications Ondansetron HCl (Zofran) 8 mg 1X ONCE IV Last administered on 03/12/18at 19:26 ; Start 03/12/18 at 19:15; Stop 03/12/18 at 19:16; Status DC Famotidine (Pepcid Vial) 20 mg 1X ONCE IVP Last administered on 03/12/18at 19: 26; Start 03/12/18 at 19:15; Stop 03/12/18 at 19:16; Status DC Multivitamins/ Minerals 10 ml/ Folic Acid 1 mg/ Thiamine HCl 100 mg/Lactated Ringer's 1,011.2 ml @ 1,011.2 mls/hr 1X ONCE IV Last administered on at 19:27; Start 03/12/18 at 19:30; Stop 03/12/18 at 20:29; Status DC Morphine Sulfate (Morphine 10mg Syringe) 10 mg 1X ONCE SQ Last administered on 03/12/18at 19:26; Start 03/12/18 at 19:15; Stop 03/12/18 at 19:16; Status DC Iohexol (Omnipaque 240 Mg/ml) 30 ml 1X ONCE PO Last administered on 03/12/18at 21:12; Start 03/12/18 at 19:30; Stop 03/12/18 at 19:31; Status DC Iohexol (Omnipaque 300 Mg/ml) 75 ml 1X ONCE IV Last administered on 03/12/18at 21:13; Start 03/12/18 at 19:30; Stop 03/12/18 at 19:31; Status DC Info (Do NOT chart on this entry -- for MONITORING) 1 each PRN DAILY PRN MC SEE COMMENTS; Start 03/12/18 at 19:30; Stop 03/14/18 at 19:29 Ondansetron HCl (Zofran) 4 mg PRN Q4HRS PRN IV NAUSEA/VOMITING; Start 03/12/18 at 20:00; Stop 03/13/18 at 19:59 Albuterol/ Ipratropium (Duoneb) 3 ml RTQID NEB Last administered on 03/13/18at 10:57; Start 03/12/18 at 20:00; Stop 03/13/18 at 19:59 Multivitamins/ Minerals 10 ml/ Folic Acid 1 mg/ Thiamine HCl 100 mg/Lactated Ringer's 1,011.2 ml @ 1,011.2 mls/hr DAILY IV ; Start 03/13/18 at 09:00; Stop 03/13/18 at 11:49; Status DC Famotidine (Pepcid Vial) 20 mg BID IVP Last administered on 03/13/18at 08:19; Start 03/12/18 at 21:00 Lactated Ringer's 1,000 ml @ 160 mls/hr Q6H15M IV Last administered on at 04:17; Start 03/12/18 at 20:00 Morphine Sulfate (Morphine 10mg Syringe) 10 mg QIDPRN PRN SQ severe pain Last administered on 03/13/18at 08:26; Start 03/12/18 at 20:00 Lorazepam (Ativan) 2 mg 1X PRN PRN IV seizure; Start 03/12/18 at 20:00 Lorazepam (Ativan) 2 mg QID PO Last administered on 03/13/18at 14:05; Start at 23:59 Potassium Chloride/Sodium Chloride 1,000 ml @ 75 mls/hr 1X ONCE IV ; Start at 20:15; Stop 03/13/18 at 09:34; Status DC Multivitamins/ Minerals 10 ml/ Thiamine HCl 100 mg/Folic Acid 1 mg/Sodium Chloride 1,011.2 ml @ 100 mls/ hr DAILY IV Last administered on 03/13/18at 10: 17; Start 03/13/18 at 09:00; Stop 03/18/18 at 08:59 Chlordiazepoxide (Librium) 50 mg PRN Q1HR PRN PO For CIWA 8-14 Last administered on 03/13/18at 14:05; Start 03/12/18 at 23:45 Chlordiazepoxide (Librium) 100 mg PRN Q1HR PRN PO For CIWA 15 or greater; Start 03/12/18 at 23:45 Haloperidol Lactate (Haldol) 5 mg PRN Q4HRS PRN IM Hallucinatns,Confusn, Delirium; Start 03/12/18 at 23:45 Diphenhydramine HCl (Benadryl) 25 mg PRN Q15MIN PRN IVP EPS symptoms 2'Haldol admin; Start 03/12/18 at 23:45 Clonidine HCl (Catapres) 0.1 mg PRN Q1HR PRN PO SBP>180 OR DBP>100, MR X 3; Start 03/12/18 at 23:45 Lorazepam (Ativan) 2 mg PRN Q15MIN PRN IV ANXIETY / AGITATION; Start 03/12/18 at 23:45 Influenza Virus Vaccine (Afluria Trivalent [id number] Syringe) 0.5 ml ONCE ONCE VAX IM Last administered on 03/13/18at 11:54; Start 03/13/18 at 09:00; Stop at 09:01; Status DC Info (FLU VACCINE per PROTOCOL) 1 ea PRN 1X PRN MC PER PROTOCOL; Start at 01:00; Status Cancel Potassium Chloride 100 ml @ 50 mls/hr Q1H IV Last administered on 03/13/18at 10 :17; Start 03/13/18 at 07:15; Stop 03/13/18 at 09:14; Status DC Potassium Chloride 100 ml @ 50 mls/hr Q1H IV ; Start 03/13/18 at 15:45; Stop at 17:44; Status UNV Active Scripts Active Oxycodone Hcl 5 Mg Capsule 1 Cap PO TID Reported Chlordiazepoxide Hcl 25 Mg Capsule 25 Mg PO TID Exam Vital Signs Vital Signs Date Time Temp Pulse Resp B/P (MAP) Pulse Ox O2 Delivery O2 Flow Rate FiO2 03/13/18 15:08 98.5 105 20 110/75 (87) 98 Room Air General Appearance: Alert (lethargic, jaundiced), Oriented X3, Cooperative HEENT: Atraumatic, PERRLA, EOMI, Other (scleral icterus) Respiratory: Clear to auscultation, Normal air movement Heart: Normal S1, Normal S2, No murmurs Abdominal: Normal bowel sounds (epigastric tenderness no r/g/mass), Soft Extremities: No clubbing, No cyanosis, No edema Skin: No breakdown, No significant lesion Neuro: Sensation intact, Cranial nerves 3-12 NL Psych/Mental Status: Other (flat affect depressed mood) Assessment/Plan Assessment/Plan Alcohol Intoxication now Withdrawal Epigastric Pain history of pancreatitis Colitis Macrocytic anemia Critical hypokalemia Elevated LFTs Severe Malnutrition Metabolic acidosis CIWA protocol, electrolyte protocol, check stool studies follow labs. COURSE Allergies Coded Allergies Type Severity Reaction Last Updated Verified Sulfa (Sulfonamide Antibiotics) Allergy Intermediate 01/02/18 Yes prochlorperazine Allergy Intermediate 01/02/18 Yes Laboratory Tests Test 03/12/18 19:15 03/12/18 20:57 03/13/18 03:25 03/13/18 06:17 White Blood Count 5.9 x10^3/uL (4.0-11.0) 5.1 x10^3/uL (4.0-11.0) Red Blood Count 3.22 x10^6/uL (3.50-5.40) 2.81 x10^6/uL (3.50-5.40) Hemoglobin 11.4 g/dL (12.0-15.5) 9.9 g/dL (12.0-15.5) Hematocrit 34.2 % (36.0-47.0) 29.8 % (36.0-47.0) Mean Corpuscular Volume 106 fL (79-100) 106 fL (79-100) Mean Corpuscular Hemoglobin 35 pg (25-35) 36 pg (25-35) Mean Corpuscular Hemoglobin Concent 33 g/dL (31-37) 33 g/dL (31-37) Red Cell Distribution Width 18.6 % (11.5-14.5) 18.3 % (11.5-14.5) Platelet Count 142 x10^3/uL (140-400) 105 x10^3/uL (140-400) Neutrophils (%) (Auto) 72 % (31-73) 63 % (31-73) Lymphocytes (%) (Auto) 18 % (24-48) 28 % (24-48) Monocytes (%) (Auto) 8 % (0-9) 7 % (0-9) Eosinophils (%) (Auto) 2 % (0-3) 1 % (0-3) Basophils (%) (Auto) 1 % (0-3) 1 % (0-3) Neutrophils # (Auto) 4.3 x10^3uL (1.8-7.7) 3.2 x10^3uL (1.8-7.7) Lymphocytes # (Auto) 1.1 x10^3/uL (1.0-4.8) 1.4 x10^3/uL (1.0-4.8) Monocytes # (Auto) 0.5 x10^3/uL (0.0-1.1) 0.4 x10^3/uL (0.0-1.1) Eosinophils # (Auto) 0.1 x10^3/uL (0.0-0.7) 0.1 x10^3/uL (0.0-0.7) Basophils # (Auto) 0.0 x10^3/uL (0.0-0.2) 0.0 x10^3/uL (0.0-0.2) Prothrombin Time 11.8 SEC (9.4-11.4) Prothromb Time International Ratio 1.2 (0.9-1.1) Activated Partial Thromboplast Time 27 SEC (23-33) Maternal Serum HCG Beta Subunit < 1 mIU/mL (0-6) Sodium Level 142 mmol/L (136-145) 139 mmol/L (136-145) Potassium Level 2.9 mmol/L (3.5-5.1) 2.7 mmol/L (3.5-5.1) Chloride Level 99 mmol/L (98-107) 99 mmol/L (98-107) Carbon Dioxide Level 29 mmol/L (21-32) 29 mmol/L (21-32) Anion Gap 14 (6-14) 11 (6-14) Blood Urea Nitrogen 7 mg/dL (7-20) 5 mg/dL (7-20) Creatinine 0.6 mg/dL (0.6-1.0) 0.6 mg/dL (0.6-1.0) Estimated GFR (Cockcroft-Gault) 108.1 108.1 Glucose Level 103 mg/dL (70-99) 103 mg/dL (70-99) Lactic Acid Level 3.7 mmol/L (0.4-2.0) Calcium Level 8.4 mg/dL (8.5-10.1) 7.7 mg/dL (8.5-10.1) Total Bilirubin 2.1 mg/dL (0.2-1.0) Direct Bilirubin 1.8 mg/dL (0.0-0.2) Aspartate Amino Transf (AST/SGOT) 424 U/L (15-37) Alanine Aminotransferase (ALT/SGPT) 90 U/L (14-59) Alkaline Phosphatase 383 U/L (46-116) Ammonia 43 mcmol/L (11-34) Troponin I Quantitative < 0.017 ng/mL (0-0.055) Total Protein 7.2 g/dL (6.4-8.2) Albumin 2.8 g/dL (3.4-5.0) Lipase 147 U/L (73-393) Ethyl Alcohol Level 239 mg/dL (0-10) Urine Collection Type Unknown Urine Color Krysten Urine Clarity Hazy Urine pH 7.0 Urine Specific [place] 1.015 Urine Protein Neg (NEG-TRACE) Urine Glucose (UA) Neg mg/dL (NEG) Urine Ketones (Stick) 15 mg/dL (NEG) Urine Blood Neg (NEG) Urine Nitrite Neg (NEG) Urine Bilirubin Small (NEG) Urine Urobilinogen Dipstick 4 mg/dL (0.2 mg/dL) Urine Leukocyte Esterase Trace (NEG) Urine RBC Occ /HPF (0-2) Urine WBC 5-10 /HPF (0-4) Urine Squamous Epithelial Cells Few /LPF Urine Bacteria Mod /HPF (0-FEW) Urine Hyaline Casts Occ /HPF Urine Mucus Slight /LPF Urine Opiates Screen Pos (NEG) Urine Methadone Screen Neg (NEG) Urine Barbiturates Neg (NEG) Urine Phencyclidine Screen Neg (NEG) Urine Amphetamine/Methamphetamine Neg (NEG) Urine Benzodiazepines Screen Neg (NEG) Urine Cocaine Screen Neg (NEG) Urine Cannabinoids Screen Neg (NEG) Urine Ethyl Alcohol Pos (NEG) Stool Occult Blood Negative (NEG) Test 03/13/18 15:00 Sodium Level 138 mmol/L (136-145) Potassium Level 3.0 mmol/L (3.5-5.1) Chloride Level 99 mmol/L (98-107) Carbon Dioxide Level 32 mmol/L (21-32) Anion Gap 7 (6-14) Blood Urea Nitrogen 3 mg/dL (7-20) Creatinine 0.7 mg/dL (0.6-1.0) Estimated GFR (Cockcroft-Gault) 90.5 Glucose Level 133 mg/dL (70-99) Calcium Level 7.6 mg/dL (8.5-10.1) Current Medications Medications (Trade) Dose Ordered Sig/Chandan Route PRN Reason Start Time Stop Time Status Last Admin Dose Admin Ondansetron HCl (Zofran) 8 mg 1X ONCE IV 03/12/18 19:15 03/12/18 19:16 DC 03/12/18 19:26 Famotidine (Pepcid Vial) 20 mg 1X ONCE IVP 03/12/18 19:15 03/12/18 19:16 DC 03/12/18 19:26 Multivitamins/ Minerals 10 ml/ Folic Acid 1 mg/ Thiamine HCl 100 mg/Lactated Ringer's 1,011.2 ml @ 1,011.2 mls/hr 1X ONCE IV 03/12/18 19:30 03/12/18 20:29 DC 03/12/18 19:27 Morphine Sulfate (Morphine 10mg Syringe) 10 mg 1X ONCE SQ 03/12/18 19:15 03/12/18 19:16 DC 03/12/18 19:26 Iohexol (Omnipaque 240 Mg/ml) 30 ml 1X ONCE PO 03/12/18 19:30 03/12/18 19:31 DC 03/12/18 21:12 Iohexol (Omnipaque 300 Mg/ml) 75 ml 1X ONCE IV 03/12/18 19:30 03/12/18 19:31 DC 03/12/18 21:13 Info (Do NOT chart on this entry -- for MONITORING) 1 each PRN DAILY PRN MC SEE COMMENTS 03/12/18 19:30 03/14/18 19:29 Ondansetron HCl (Zofran) 4 mg PRN Q4HRS PRN IV NAUSEA/VOMITING 03/12/18 20:00 03/13/18 19:59 Albuterol/ Ipratropium (Duoneb) 3 ml RTQID NEB 03/12/18 20:00 03/13/18 19:59 03/13/18 10:57 Multivitamins/ Minerals 10 ml/ Folic Acid 1 mg/ Thiamine HCl 100 mg/Lactated Ringer's 1,011.2 ml @ 1,011.2 mls/hr DAILY IV 03/13/18 09:00 03/13/18 11:49 DC Famotidine (Pepcid Vial) 20 mg BID IVP 03/12/18 21:00 03/13/18 08:19 Lactated Ringer's 1,000 ml @ 160 mls/hr Q6H15M IV 03/12/18 20:00 03/13/18 04:17 Morphine Sulfate (Morphine 10mg Syringe) 10 mg QIDPRN PRN SQ severe pain 03/12/18 20:00 03/13/18 08:26 Lorazepam (Ativan) 2 mg 1X PRN PRN IV seizure 03/12/18 20:00 Lorazepam (Ativan) 2 mg QID PO 03/12/18 23:59 03/13/18 14:05 Potassium Chloride/Sodium Chloride 1,000 ml @ 75 mls/hr 1X ONCE IV 03/12/18 20:15 03/13/18 09:34 DC Multivitamins/ Minerals 10 ml/ Thiamine HCl 100 mg/Folic Acid 1 mg/Sodium Chloride 1,011.2 ml @ 100 mls/ hr DAILY IV 03/13/18 09:00 03/18/18 08:59 03/13/18 10:17 Chlordiazepoxide (Librium) 50 mg PRN Q1HR PRN PO For CIWA 8-14 03/12/18 23:45 03/13/18 14:05 Chlordiazepoxide (Librium) 100 mg PRN Q1HR PRN PO For CIWA 15 or greater 03/12/18 23:45 Haloperidol Lactate (Haldol) 5 mg PRN Q4HRS PRN IM Hallucinatns,Confusn,Delirium 03/12/18 23:45 Diphenhydramine HCl (Benadryl) 25 mg PRN Q15MIN PRN IVP EPS symptoms 2'Haldol admin 03/12/18 23:45 Clonidine HCl (Catapres) 0.1 mg PRN Q1HR PRN PO SBP>180 OR DBP>100, MR X 3 03/12/18 23:45 Lorazepam (Ativan) 2 mg PRN Q15MIN PRN IV ANXIETY / AGITATION 03/12/18 23:45 Influenza Virus Vaccine (Afluria Trivalent [id number] Syringe) 0.5 ml ONCE ONCE VAX IM 03/13/18 09:00 03/13/18 09:01 DC 03/13/18 11:54 Info (FLU VACCINE per PROTOCOL) 1 ea PRN 1X PRN MC PER PROTOCOL 03/13/18 01:00 Cancel Potassium Chloride 100 ml @ 50 mls/hr Q1H IV 03/13/18 07:15 03/13/18 09:14 DC 03/13/18 10:17 Potassium Chloride 100 ml @ 50 mls/hr Q1H IV 03/13/18 15:45 03/13/18 17:44 UNV I & O 03/13/18 00:00 Intake Total 1111.2 ml Balance 1111.2 ml Orders Procedure Category Date Status Time Vital Signs ER 03/12/18 Transmitted 18:48 Bp Monitoring ER 03/12/18 Transmitted 18:48 Senior Research Consultant ER 03/12/18 Transmitted 18:48 Continuous Pulse ER 03/12/18 Transmitted Oximetry 18:48 Saline Lock ER 03/12/18 Transmitted 18:48 Temperature Monitoring ER 03/12/18 Transmitted 18:48 Cath Bladder ER 03/12/18 Transmitted Non-Indwelling 18:48 Cbc W Autodiff LAB 03/12/18 Complete 18:48 Ua, Cult If Indicated LAB 03/12/18 Complete 18:48 Lipase LAB 03/12/18 Complete 18:48 Basic Metabolic Panel LAB 03/12/18 Complete 18:48 Hepatic Panel LAB 03/12/18 Complete 18:48 Troponin I LAB 03/12/18 Complete 18:48 Protime LAB 03/12/18 Complete 18:48 Partial LAB 03/12/18 Complete Thromboplastin Time 18:48 Drugs Of Abuse Ur LAB 03/12/18 Complete 18:48 Acute Abdomen Series RAD 03/12/18 Resulted 18:48 12 Lead Ekg EKG 03/12/18 Resulted 18:48 Urine Test XAVI 03/12/18 In Process 18:48 Pulse Oximetry: XAVI 03/12/18 In Process Standing Order 18:48 Ondansetron Pf PHA 03/12/18 Complete (Zofran) 19:15 Famotidine Pf (Pepcid PHA 03/12/18 Complete Vial) 19:15 Ethanol LAB 03/12/18 Complete 18:48 Mvi, Adult No.4 With PHA 03/12/18 Complete Vit K (Infuvite Blu 19:30 Ct Abd Pelv W/Oral&Iv CT 03/12/18 Resulted Contrast 19:04 Morphine Sulfate PHA 03/12/18 Complete (Morphine 10mg 19:15 Stool (Fecal) Culture PADMINI 03/12/18 In Process 19:06 Cdif W/ Epi Pcr LAB 03/12/18 In Process 19:06 Lactic Acid LAB 03/12/18 Complete 19:06 Blood Culture PADMINI 03/12/18 In Process 19:06 Beta-Hcg, Serum LAB 03/12/18 Complete 19:08 Type And Screen BBK 03/12/18 Complete 19:08 Ammonia LAB 03/12/18 Complete 19:12 Iohexol 240 Mg/Ml PHA 03/12/18 Complete (Omnipaque 240 Mg/Ml) 19:30 Iohexol 300 Mg/Ml PHA 03/12/18 Complete (Omnipaque 300 Mg/Ml) 19:30 Contrast Given (Do PHA 03/12/18 In Process Not Chart On This Ent 19:30 [place] Order ADT 03/12/18 Transmitted 19:46 Code Status CODE 03/12/18 Transmitted 19:46 Vital Signs, Per XAVI 03/12/18 In Process Protocol 19:46 Oxygen XAVI 03/12/18 In Process 19:46 Nothing By Mouth DIET 03/13/18 Transmitted Breakfast Ambulate With XAVI 03/12/18 In Process Assistance 19:46 Fall Precautions XAVI 03/12/18 In Process 19:46 Cbc W Autodiff LAB 03/13/18 Complete 06:00 Basic Metabolic Panel LAB 03/13/18 Complete 06:00 Ondansetron Pf PHA 03/12/18 In Process (Zofran) 20:00 Neuro Check Q 4 Hrs XAVI 03/12/18 In Process 19:46 Ipratrpium/Albuterol PHA 03/12/18 In Process 0.5/2.5mg (Duoneb) 20:00 Incentive Spirometry XAVI 03/12/18 In Process 19:46 Seizure Precautions ER 03/12/18 Transmitted 19:46 Seizure Precautions, XAVI 03/12/18 In Process Implement 19:46 Pneumatic Compression XAVI 03/12/18 In Process Device 19:46 Mvi, Adult No.4 With PHA 03/13/18 Complete Vit K (Infuvite Blu 09:00 Famotidine Pf (Pepcid PHA 03/12/18 In Process Vial) 21:00 Iv Ringers PHA 03/12/18 In Process Solution,Lactated (Iv 20:00 Morphine Sulfate PHA 03/12/18 In Process (Morphine 10mg 20:00 Lorazepam (Ativan) PHA 03/12/18 In Process 20:00 Lorazepam (Ativan) PHA 03/12/18 In Process 23:59 Potassium Cl 40meq In PHA 03/12/18 Complete 0.9%Nacl (Kcl 40 M 20:15 Urine Culture PADMINI 03/12/18 In Process 21:25 Admit Orders ADT 03/12/18 Transmitted Mvi, Adult No.4 With PHA 03/13/18 In Process Vit K (Infuvite Blu 09:00 Chlordiazepoxide Hcl PHA 03/12/18 In Process (Librium) 23:45 Chlordiazepoxide Hcl PHA 03/12/18 In Process (Librium) 23:45 Haloperidol Lact PHA 03/12/18 In Process (Haldol) 23:45 Diphenhydramine PHA 03/12/18 In Process (Benadryl) 23:45 Clonidine Hcl PHA 03/12/18 In Process (Catapres) 23:45 Lorazepam (Ativan) PHA 03/12/18 In Process 23:45 Admission Screening CONS 03/12/18 Transmitted 23:54 Case Management CM1 03/13/18 Transmitted Referral 07:00 High Risk Dc CONS 03/12/18 Transmitted Readmission 23:54 Smoking Cessation RT 03/12/18 Complete 3-10 Min 23:54 Isolation OTHER 03/12/18 Transmitted 23:54 Flu Vacc Ts PHA 03/13/18 Complete (5yr+)/Pf (Afluria T 09:00 Pt. On Electrolyte XAVI 03/13/18 In Process Protocol 07:[address] Lab XAVI 03/13/18 In Process Order 07:13 Potassium Chloride PHA 03/13/18 Complete 20meq (Kcl Premix 20m 07:15 Fecal Occult Blood LAB 03/13/18 Complete 07:42 Basic Metabolic Panel LAB 03/13/18 Complete 12:00 Airway Inhalation RT 03/13/18 Complete Treatment Nurse To Place Lab XAVI 03/13/18 In Process Order 15:45 Potassium Chloride PHA 03/13/18 Logged 20meq (Kcl Premix 20m 15:45 Vital Signs Date Time Temp Pulse Resp B/P (MAP) Pulse Ox O2 Delivery O2 Flow Rate FiO2 03/13/18 15:08 98.5 105 20 110/75 (87) 98 Room Air MARY BOLDEN DO Mar 13, 2018 16:00
[2018-03-13] MEDS: LORazepam 2 MG/ML VIAL IV PRN ×3 (16:17→21:59)
--- NOTE | 2018-03-13 18:16 | NUR ---
NSG NOTE; PT FOUND ON FLOOR AT 1035 BY ME. PT STATES SHE NEEDED TO GO TO THE BATHROOM AND GOT ENTANGLED IN HER IV LINE. SHE STATES SHE IS UNINJURED. DR BOLDEN INFORMED. NO ORDERS RECEIVED FALL RISK INTERVENTIONS INCREASED TO BED ALARM, ALSO
[2018-03-13 19:32] VITALS: BP 126/85
[2018-03-13] MEDS: NICOTINE 7MG PATCH. TD SCH (20:10)
[2018-03-13 22:13] VITALS: BP 116/76
[2018-03-13] MEDS: HALOPERIDOL LACT 5 MG/ML VIAL. IM PRN (22:42)
[2018-03-14] MEDS: HALOPERIDOL LACT 5 MG/ML VIAL. IM PRN (04:08)
[2018-03-14] MEDS: IV RINGERS SOLUTION,LACTATED 1,000 ML IV SCH (04:08)
--- NOTE | 2018-03-14 04:33 | NUR ---
ASSUMED CARE AT START OF SHIFT PT VERY RESTLESS AND CONFUSED TO TIME AND SURROUNDING AND EVEN HER AGE AT TIMES. CIWA RAGE FROM 20-8 MEDICATION GIVEN PRESCRIBED. BED ALARM ON FOR SAFETY , PT FREQ ATTEMPTS TO CLIMB OUT OF BED, PT NEED TO BE CLOSELY MONITOR FOR SAFETY. [employer] SHOWS ST 105[address]120S WHEN UP TO BATHROOM. WILL CONTINUE WITH CURRENT PLAN OF CARE.
[2018-03-14 05:34] VITALS: BP 128/87
[2018-03-14 06:40] LABS: BASO % 1 % (0-3); EOS # 0.2 x10^3/uL (0.0-0.7); EOS % 5 % (0-3); HEMATOCRIT 27.4 % (36.0-47.0); HEMOGLOBIN 9.1 g/dL (12.0-15.5); LYMPH # 1.2 x10^3/uL (1.0-4.8); LYMPH % 30 % (24-48); MEAN CORPUSCULAR HEMOGLOBIN 36 pg (25-35); MEAN CORPUSCULAR HGB CONC 33 g/dL (31-37); MEAN CORPUSCULAR VOLUME 107 fL (79-100); MONO # 0.2 x10^3/uL (0.0-1.1); MONO % 6 % (0-9); NEUT # 2.3 x10^3uL (1.8-7.7); NEUT % 58 % (31-73); PLATELET COUNT 91 x10^3/uL (140-400); RED BLOOD COUNT 2.57 x10^6/uL (3.50-5.40); RED CELL DISTRIBUTION WIDTH 18.4 % (11.5-14.5)
[2018-03-14 06:52] LABS: ALBUMIN 2.1 g/dL (3.4-5.0); ALBUMIN/GLOBULIN RATIO 0.6 (1.0-1.7); CALCIUM 8.5 mg/dL (8.5-10.1); CREATININE 0.6 mg/dL (0.6-1.0); GFR 108.1; POTASSIUM 3.4 mmol/L (3.5-5.1); TOTAL BILIRUBIN 3.1 mg/dL (0.2-1.0); TOTAL PROTEIN 5.7 g/dL (6.4-8.2)
[2018-03-14] MEDS ORDERED: VANCOMYCIN PER PHARMACY MC PRN (07:45)
--- NOTE | 2018-03-14 07:55 | PDOC ---
SUBJECTIVE: RN reports patient with no new issues overnight. Haldol has been effective in controlling patient's anxiety and has helped some with the tremor. Still having loose stools, C. difficile came back positive. Hemoglobin dropped slightly to 9.1, potassium continues to improve today 3.4, liver enzymes have begun to trend down. Patient's abdominal pain and cramping have improved as well and her vitals have remained stable throughout the night. No seizure activity to date. OBJECTIVE: Vital Signs: Vital Signs Date Time Temp Pulse Resp B/P (MAP) Pulse Ox O2 Delivery O2 Flow Rate FiO2 03/14/18 05:34 98.6 110 20 128/87 (101) 93 Room Air I & O Intake and Output 03/14/18 07:00 Intake Total 2100 ml Output Total 1300 ml Balance 800 ml Intake Oral 900 ml IV Total 1200 ml Output Urine Total 1300 ml # Voids 9 # Bowel Movements 1 Labs: Laboratory Tests Test 03/12/18 19:15 03/12/18 20:57 03/13/18 03:25 03/13/18 06:17 White Blood Count 5.9 x10^3/uL (4.0-11.0) 5.1 x10^3/uL (4.0-11.0) Red Blood Count 3.22 x10^6/uL (3.50-5.40) 2.81 x10^6/uL (3.50-5.40) Hemoglobin 11.4 g/dL (12.0-15.5) 9.9 g/dL (12.0-15.5) Hematocrit 34.2 % (36.0-47.0) 29.8 % (36.0-47.0) Mean Corpuscular Volume 106 fL (79-100) 106 fL (79-100) Mean Corpuscular Hemoglobin 35 pg (25-35) 36 pg (25-35) Mean Corpuscular Hemoglobin Concent 33 g/dL (31-37) 33 g/dL (31-37) Red Cell Distribution Width 18.6 % (11.5-14.5) 18.3 % (11.5-14.5) Platelet Count 142 x10^3/uL (140-400) 105 x10^3/uL (140-400) Neutrophils (%) (Auto) 72 % (31-73) 63 % (31-73) Lymphocytes (%) (Auto) 18 % (24-48) 28 % (24-48) Monocytes (%) (Auto) 8 % (0-9) 7 % (0-9) Eosinophils (%) (Auto) 2 % (0-3) 1 % (0-3) Basophils (%) (Auto) 1 % (0-3) 1 % (0-3) Neutrophils # (Auto) 4.3 x10^3uL (1.8-7.7) 3.2 x10^3uL (1.8-7.7) Lymphocytes # (Auto) 1.1 x10^3/uL (1.0-4.8) 1.4 x10^3/uL (1.0-4.8) Monocytes # (Auto) 0.5 x10^3/uL (0.0-1.1) 0.4 x10^3/uL (0.0-1.1) Eosinophils # (Auto) 0.1 x10^3/uL (0.0-0.7) 0.1 x10^3/uL (0.0-0.7) Basophils # (Auto) 0.0 x10^3/uL (0.0-0.2) 0.0 x10^3/uL (0.0-0.2) Prothrombin Time 11.8 SEC (9.4-11.4) Prothromb Time International Ratio 1.2 (0.9-1.1) Activated Partial Thromboplast Time 27 SEC (23-33) Maternal Serum HCG Beta Subunit < 1 mIU/mL (0-6) Sodium Level 142 mmol/L (136-145) 139 mmol/L (136-145) Potassium Level 2.9 mmol/L (3.5-5.1) 2.7 mmol/L (3.5-5.1) Chloride Level 99 mmol/L (98-107) 99 mmol/L (98-107) Carbon Dioxide Level 29 mmol/L (21-32) 29 mmol/L (21-32) Anion Gap 14 (6-14) 11 (6-14) Blood Urea Nitrogen 7 mg/dL (7-20) 5 mg/dL (7-20) Creatinine 0.6 mg/dL (0.6-1.0) 0.6 mg/dL (0.6-1.0) Estimated GFR (Cockcroft-Gault) 108.1 108.1 Glucose Level 103 mg/dL (70-99) 103 mg/dL (70-99) Lactic Acid Level 3.7 mmol/L (0.4-2.0) Calcium Level 8.4 mg/dL (8.5-10.1) 7.7 mg/dL (8.5-10.1) Total Bilirubin 2.1 mg/dL (0.2-1.0) Direct Bilirubin 1.8 mg/dL (0.0-0.2) Aspartate Amino Transf (AST/SGOT) 424 U/L (15-37) Alanine Aminotransferase (ALT/SGPT) 90 U/L (14-59) Alkaline Phosphatase 383 U/L (46-116) Ammonia 43 mcmol/L (11-34) Troponin I Quantitative < 0.017 ng/mL (0-0.055) Total Protein 7.2 g/dL (6.4-8.2) Albumin 2.8 g/dL (3.4-5.0) Lipase 147 U/L (73-393) Ethyl Alcohol Level 239 mg/dL (0-10) Urine Collection Type Unknown Urine Color Krysten Urine Clarity Hazy Urine pH 7.0 Urine Specific [place] 1.015 Urine Protein Neg (NEG-TRACE) Urine Glucose (UA) Neg mg/dL (NEG) Urine Ketones (Stick) 15 mg/dL (NEG) Urine Blood Neg (NEG) Urine Nitrite Neg (NEG) Urine Bilirubin Small (NEG) Urine Urobilinogen Dipstick 4 mg/dL (0.2 mg/dL) Urine Leukocyte Esterase Trace (NEG) Urine RBC Occ /HPF (0-2) Urine WBC 5-10 /HPF (0-4) Urine Squamous Epithelial Cells Few /LPF Urine Bacteria Mod /HPF (0-FEW) Urine Hyaline Casts Occ /HPF Urine Mucus Slight /LPF Urine Opiates Screen Pos (NEG) Urine Methadone Screen Neg (NEG) Urine Barbiturates Neg (NEG) Urine Phencyclidine Screen Neg (NEG) Urine Amphetamine/Methamphetamine Neg (NEG) Urine Benzodiazepines Screen Neg (NEG) Urine Cocaine Screen Neg (NEG) Urine Cannabinoids Screen Neg (NEG) Urine Ethyl Alcohol Pos (NEG) Stool Occult Blood Negative (NEG) Clostridium difficile Toxin (PCR) Positive (Negative) Test 03/13/18 15:00 03/14/18 06:11 Sodium Level 138 mmol/L (136-145) 141 mmol/L (136-145) Potassium Level 3.0 mmol/L (3.5-5.1) 3.4 mmol/L (3.5-5.1) Chloride Level 99 mmol/L (98-107) 104 mmol/L (98-107) Carbon Dioxide Level 32 mmol/L (21-32) 32 mmol/L (21-32) Anion Gap 7 (6-14) 5 (6-14) Blood Urea Nitrogen 3 mg/dL (7-20) 1 mg/dL (7-20) Creatinine 0.7 mg/dL (0.6-1.0) 0.6 mg/dL (0.6-1.0) Estimated GFR (Cockcroft-Gault) 90.5 108.1 Glucose Level 133 mg/dL (70-99) 110 mg/dL (70-99) Calcium Level 7.6 mg/dL (8.5-10.1) 8.5 mg/dL (8.5-10.1) Creatine Kinase 60 U/L (26-192) White Blood Count 4.0 x10^3/uL (4.0-11.0) Red Blood Count 2.57 x10^6/uL (3.50-5.40) Hemoglobin 9.1 g/dL (12.0-15.5) Hematocrit 27.4 % (36.0-47.0) Mean Corpuscular Volume 107 fL (79-100) Mean Corpuscular Hemoglobin 36 pg (25-35) Mean Corpuscular Hemoglobin Concent 33 g/dL (31-37) Red Cell Distribution Width 18.4 % (11.5-14.5) Platelet Count 91 x10^3/uL (140-400) Neutrophils (%) (Auto) 58 % (31-73) Lymphocytes (%) (Auto) 30 % (24-48) Monocytes (%) (Auto) 6 % (0-9) Eosinophils (%) (Auto) 5 % (0-3) Basophils (%) (Auto) 1 % (0-3) Neutrophils # (Auto) 2.3 x10^3uL (1.8-7.7) Lymphocytes # (Auto) 1.2 x10^3/uL (1.0-4.8) Monocytes # (Auto) 0.2 x10^3/uL (0.0-1.1) Eosinophils # (Auto) 0.2 x10^3/uL (0.0-0.7) Basophils # (Auto) 0.0 x10^3/uL (0.0-0.2) BUN/Creatinine Ratio 2 (6-20) Total Bilirubin 3.1 mg/dL (0.2-1.0) Aspartate Amino Transf (AST/SGOT) 210 U/L (15-37) Alanine Aminotransferase (ALT/SGPT) 60 U/L (14-59) Alkaline Phosphatase 268 U/L (46-116) Total Protein 5.7 g/dL (6.4-8.2) Albumin 2.1 g/dL (3.4-5.0) Albumin/Globulin Ratio 0.6 (1.0-1.7) Physical Exam: Constitutional: Pale and jaundiced, disheveled in no apparent distress HENT: Normocephalic, atraumatic, bilateral external ears normal, oropharynx moist, no oral exudates, nose normal. Eyes: BERNABE, EOMI, scleral icterus, no discharge. Neck: Normal range of motion, no tenderness, supple, no stridor. Cardiovascular: S1 N,S2N. No murmurs. No rubs or clicks. Thorax and Lungs: Normal respiration. Normal chest expansion. Normal to percuss. Equal breath sounds. No crackles. No wheeze. Abdomen: Bowel sounds normal, soft, distended with primarily epigastric tenderness no rebound guarding or masses Skin: Warm, dry, jaundiced, no erythema, no rash. Back: No tenderness, no CVA tenderness. Extremities: Intact distal pulses, no tenderness, no cyanosis, no clubbing, ROM intact, no edema. Neurologic: Alert and oriented X 3, normal motor function, normal sensory function, no focal deficits noted. Psychologic: Affect flat, mood appears depressed patient is sedated with medications ASSESSMENT: Alcohol withdrawal C. difficile colitis Macrocytic anemia Hypokalemia Severe malnutrition PLAN: Continue CIWA and electrolyte protocols. Vancomycin by mouth for C. difficile colitis. Continue to control withdrawal symptoms and monitor labs. MARY BOLDEN DO Mar 14, 2018 07:55
--- NOTE | 2018-03-14 08:04 | NUR ---
IP: patient tested + for c diff. Requires contact + precautions.
[2018-03-14] MEDS: FAMOTIDINE 20 MG/2 ML VIAL IVP SCH (10:11)
[2018-03-14] MEDS: LORazepam 1 MG TABLET PO SCH ×2 (10:11→14:00)
[2018-03-14] MEDS: VANCOMYCIN 125 MG/2.5 ML ORAL SOLUTION. PO SCH ×2 (10:11→14:00)
[2018-03-14] MEDS: MVI, ADULT NO.4 WITH VIT K 10 ML, THIAMINE INJ 100 MG, FOLIC ACID INJ 1 MG in IV NORMAL... IV SCH ×4 (10:11)
[2018-03-14] MEDS: NICOTINE 7MG PATCH. TD SCH (10:12)
[2018-03-14 10:24] VITALS: BP 108/75
--- NOTE | 2018-03-14 14:19 | PDOC3 ---
Discharge Summary Visit Information Date of Admission: Mar 12, 2018 Date of Discharge: Mar 14, 2018 Admitting Diagnosis: alcohol intoxication, alcohol withdrawal, colitis, anemi Final Diagnosis See problem list below Problems: (1) Hypokalemia (2) Alcohol withdrawal delirium (3) Hypokalemia (4) Alcohol intoxication delirium (5) Tobacco abuse (6) Alcohol withdrawal (7) Severe malnutrition (8) Clostridium difficile colitis (9) Elevated liver enzymes Brief Hospital Course Allergies Allergies Coded Allergies Type Severity Reaction Last Updated Verified Sulfa (Sulfonamide Antibiotics) Allergy Intermediate 01/02/18 Yes prochlorperazine Allergy Intermediate 01/02/18 Yes Vital Signs Vital Signs Date Time Temp Pulse Resp B/P (MAP) Pulse Ox O2 Delivery O2 Flow Rate FiO2 03/14/18 10:24 99.0 96 20 108/75 (86) 98 Room Air Lab Results Laboratory Tests Test 03/12/18 19:15 03/12/18 20:57 03/13/18 03:25 03/13/18 06:17 White Blood Count 5.9 x10^3/uL (4.0-11.0) 5.1 x10^3/uL (4.0-11.0) Red Blood Count 3.22 x10^6/uL (3.50-5.40) 2.81 x10^6/uL (3.50-5.40) Hemoglobin 11.4 g/dL (12.0-15.5) 9.9 g/dL (12.0-15.5) Hematocrit 34.2 % (36.0-47.0) 29.8 % (36.0-47.0) Mean Corpuscular Volume 106 fL (79-100) 106 fL (79-100) Mean Corpuscular Hemoglobin 35 pg (25-35) 36 pg (25-35) Mean Corpuscular Hemoglobin Concent 33 g/dL (31-37) 33 g/dL (31-37) Red Cell Distribution Width 18.6 % (11.5-14.5) 18.3 % (11.5-14.5) Platelet Count 142 x10^3/uL (140-400) 105 x10^3/uL (140-400) Neutrophils (%) (Auto) 72 % (31-73) 63 % (31-73) Lymphocytes (%) (Auto) 18 % (24-48) 28 % (24-48) Monocytes (%) (Auto) 8 % (0-9) 7 % (0-9) Eosinophils (%) (Auto) 2 % (0-3) 1 % (0-3) Basophils (%) (Auto) 1 % (0-3) 1 % (0-3) Neutrophils # (Auto) 4.3 x10^3uL (1.8-7.7) 3.2 x10^3uL (1.8-7.7) Lymphocytes # (Auto) 1.1 x10^3/uL (1.0-4.8) 1.4 x10^3/uL (1.0-4.8) Monocytes # (Auto) 0.5 x10^3/uL (0.0-1.1) 0.4 x10^3/uL (0.0-1.1) Eosinophils # (Auto) 0.1 x10^3/uL (0.0-0.7) 0.1 x10^3/uL (0.0-0.7) Basophils # (Auto) 0.0 x10^3/uL (0.0-0.2) 0.0 x10^3/uL (0.0-0.2) Prothrombin Time 11.8 SEC (9.4-11.4) Prothromb Time International Ratio 1.2 (0.9-1.1) Activated Partial Thromboplast Time 27 SEC (23-33) Maternal Serum HCG Beta Subunit < 1 mIU/mL (0-6) Sodium Level 142 mmol/L (136-145) 139 mmol/L (136-145) Potassium Level 2.9 mmol/L (3.5-5.1) 2.7 mmol/L (3.5-5.1) Chloride Level 99 mmol/L (98-107) 99 mmol/L (98-107) Carbon Dioxide Level 29 mmol/L (21-32) 29 mmol/L (21-32) Anion Gap 14 (6-14) 11 (6-14) Blood Urea Nitrogen 7 mg/dL (7-20) 5 mg/dL (7-20) Creatinine 0.6 mg/dL (0.6-1.0) 0.6 mg/dL (0.6-1.0) Estimated GFR (Cockcroft-Gault) 108.1 108.1 Glucose Level 103 mg/dL (70-99) 103 mg/dL (70-99) Lactic Acid Level 3.7 mmol/L (0.4-2.0) Calcium Level 8.4 mg/dL (8.5-10.1) 7.7 mg/dL (8.5-10.1) Total Bilirubin 2.1 mg/dL (0.2-1.0) Direct Bilirubin 1.8 mg/dL (0.0-0.2) Aspartate Amino Transf (AST/SGOT) 424 U/L (15-37) Alanine Aminotransferase (ALT/SGPT) 90 U/L (14-59) Alkaline Phosphatase 383 U/L (46-116) Ammonia 43 mcmol/L (11-34) Troponin I Quantitative < 0.017 ng/mL (0-0.055) Total Protein 7.2 g/dL (6.4-8.2) Albumin 2.8 g/dL (3.4-5.0) Lipase 147 U/L (73-393) Ethyl Alcohol Level 239 mg/dL (0-10) Urine Collection Type Unknown Urine Color Krysten Urine Clarity Hazy Urine pH 7.0 Urine Specific [place] 1.015 Urine Protein Neg (NEG-TRACE) Urine Glucose (UA) Neg mg/dL (NEG) Urine Ketones (Stick) 15 mg/dL (NEG) Urine Blood Neg (NEG) Urine Nitrite Neg (NEG) Urine Bilirubin Small (NEG) Urine Urobilinogen Dipstick 4 mg/dL (0.2 mg/dL) Urine Leukocyte Esterase Trace (NEG) Urine RBC Occ /HPF (0-2) Urine WBC 5-10 /HPF (0-4) Urine Squamous Epithelial Cells Few /LPF Urine Bacteria Mod /HPF (0-FEW) Urine Hyaline Casts Occ /HPF Urine Mucus Slight /LPF Urine Opiates Screen Pos (NEG) Urine Methadone Screen Neg (NEG) Urine Barbiturates Neg (NEG) Urine Phencyclidine Screen Neg (NEG) Urine Amphetamine/Methamphetamine Neg (NEG) Urine Benzodiazepines Screen Neg (NEG) Urine Cocaine Screen Neg (NEG) Urine Cannabinoids Screen Neg (NEG) Urine Ethyl Alcohol Pos (NEG) Stool Occult Blood Negative (NEG) Clostridium difficile Toxin (PCR) Positive (Negative) Test 03/13/18 15:00 03/14/18 06:11 Sodium Level 138 mmol/L (136-145) 141 mmol/L (136-145) Potassium Level 3.0 mmol/L (3.5-5.1) 3.4 mmol/L (3.5-5.1) Chloride Level 99 mmol/L (98-107) 104 mmol/L (98-107) Carbon Dioxide Level 32 mmol/L (21-32) 32 mmol/L (21-32) Anion Gap 7 (6-14) 5 (6-14) Blood Urea Nitrogen 3 mg/dL (7-20) 1 mg/dL (7-20) Creatinine 0.7 mg/dL (0.6-1.0) 0.6 mg/dL (0.6-1.0) Estimated GFR (Cockcroft-Gault) 90.5 108.1 Glucose Level 133 mg/dL (70-99) 110 mg/dL (70-99) Calcium Level 7.6 mg/dL (8.5-10.1) 8.5 mg/dL (8.5-10.1) Creatine Kinase 60 U/L (26-192) White Blood Count 4.0 x10^3/uL (4.0-11.0) Red Blood Count 2.57 x10^6/uL (3.50-5.40) Hemoglobin 9.1 g/dL (12.0-15.5) Hematocrit 27.4 % (36.0-47.0) Mean Corpuscular Volume 107 fL (79-100) Mean Corpuscular Hemoglobin 36 pg (25-35) Mean Corpuscular Hemoglobin Concent 33 g/dL (31-37) Red Cell Distribution Width 18.4 % (11.5-14.5) Platelet Count 91 x10^3/uL (140-400) Neutrophils (%) (Auto) 58 % (31-73) Lymphocytes (%) (Auto) 30 % (24-48) Monocytes (%) (Auto) 6 % (0-9) Eosinophils (%) (Auto) 5 % (0-3) Basophils (%) (Auto) 1 % (0-3) Neutrophils # (Auto) 2.3 x10^3uL (1.8-7.7) Lymphocytes # (Auto) 1.2 x10^3/uL (1.0-4.8) Monocytes # (Auto) 0.2 x10^3/uL (0.0-1.1) Eosinophils # (Auto) 0.2 x10^3/uL (0.0-0.7) Basophils # (Auto) 0.0 x10^3/uL (0.0-0.2) BUN/Creatinine Ratio 2 (6-20) Total Bilirubin 3.1 mg/dL (0.2-1.0) Aspartate Amino Transf (AST/SGOT) 210 U/L (15-37) Alanine Aminotransferase (ALT/SGPT) 60 U/L (14-59) Alkaline Phosphatase 268 U/L (46-116) Total Protein 5.7 g/dL (6.4-8.2) Albumin 2.1 g/dL (3.4-5.0) Albumin/Globulin Ratio 0.6 (1.0-1.7) Brief Hospital Course Ms. Castle is a 47 old female who presented to the emergency department complaining of abdominal pain nausea vomiting and diarrhea. She has history of alcoholism and pancreatitis and admitted to drinking on the day of admission. She was extensively evaluated in the emergency department, serum alcohol level 239, potassium critically low at 2.9, hemoglobin 11.7 macrocytic, stool is heme- negative, and liver enzymes markedly elevated. CT of the abdomen and pelvis revealed colonic thickening suspicious for colitis. She was admitted to telemetry for pain and nausea control, alcohol withdrawal and electrolyte protocols. RN reports patient with no new issues overnight. Haldol has been effective in controlling patient's anxiety and has helped some with the tremor. Still having loose stools, C. difficile came back positive. Hemoglobin dropped slightly to 9.1, potassium continues to improve today 3.4, liver enzymes have begun to trend down. Patient's abdominal pain and cramping have improved as well and her vitals have remained stable throughout the night. No seizure activity to date. I find the patient lying in bed with family at the bedside. No tremor observed, patient is alert and oriented 3 currently reporting that she's feeling much better. She is requesting discharge home as she would like to follow-up with Dr. Solomon for outpatient detox. She has previously prescribed Librium and oxycodone to help with her pain and withdrawal symptoms. Constitutional: Her color is improved much more alert today no tremor no apparent distress HENT: Normocephalic, atraumatic, bilateral external ears normal, oropharynx moist, no oral exudates, nose normal. Eyes: BERNABE, EOMI, scleral icterus, no discharge. Neck: Normal range of motion, no tenderness, supple, no stridor. Cardiovascular: S1 N,S2N. No murmurs. No rubs or clicks. Thorax and Lungs: Normal respiration. Normal chest expansion. Normal to percuss. Equal breath sounds. No crackles. No wheeze. Abdomen: Bowel sounds normal, soft, mildly distended with diffuse primarily epigastric tenderness, no masses, no pulsatile masses. Skin: Warm, dry, no erythema, jaundiced, no rash. Back: No tenderness, no CVA tenderness. Extremities: Intact distal pulses, no tenderness, no cyanosis, no clubbing, ROM intact, no edema. Neurologic: Alert and oriented X 3, moves sluggish however no tremor or drift, no focal deficits noted. Psychologic: Affect flat, judgement normal, mood depressed denies suicidal or homicidal ideation. Discharge Information Condition at Discharge: Stable Follow Up: Weeks (3-5 days) Disposition/Orders: D/C to Home Dischare Medications Current Medications Ondansetron HCl (Zofran) 8 mg 1X ONCE IV Last administered on 03/12/18at 19:26 ; Start 03/12/18 at 19:15; Stop 03/12/18 at 19:16; Status DC Famotidine (Pepcid Vial) 20 mg 1X ONCE IVP Last administered on 03/12/18at 19: 26; Start 03/12/18 at 19:15; Stop 03/12/18 at 19:16; Status DC Multivitamins/ Minerals 10 ml/ Folic Acid 1 mg/ Thiamine HCl 100 mg/Lactated Ringer's 1,011.2 ml @ 1,011.2 mls/hr 1X ONCE IV Last administered on at 19:27; Start 03/12/18 at 19:30; Stop 03/12/18 at 20:29; Status DC Morphine Sulfate (Morphine 10mg Syringe) 10 mg 1X ONCE SQ Last administered on 03/12/18at 19:26; Start 03/12/18 at 19:15; Stop 03/12/18 at 19:16; Status DC Iohexol (Omnipaque 240 Mg/ml) 30 ml 1X ONCE PO Last administered on 03/12/18at 21:12; Start 03/12/18 at 19:30; Stop 03/12/18 at 19:31; Status DC Iohexol (Omnipaque 300 Mg/ml) 75 ml 1X ONCE IV Last administered on 03/12/18at 21:13; Start 03/12/18 at 19:30; Stop 03/12/18 at 19:31; Status DC Info (Do NOT chart on this entry -- for MONITORING) 1 each PRN DAILY PRN MC SEE COMMENTS; Start 03/12/18 at 19:30; Stop 03/14/18 at 19:29 Ondansetron HCl (Zofran) 4 mg PRN Q4HRS PRN IV NAUSEA/VOMITING; Start 03/12/18 at 20:00; Stop 03/13/18 at 19:59; Status DC Albuterol/ Ipratropium (Duoneb) 3 ml RTQID NEB Last administered on 03/13/18at 16:27; Start 03/12/18 at 20:00; Stop 03/13/18 at 19:59; Status DC Multivitamins/ Minerals 10 ml/ Folic Acid 1 mg/ Thiamine HCl 100 mg/Lactated Ringer's 1,011.2 ml @ 1,011.2 mls/hr DAILY IV ; Start 03/13/18 at 09:00; Stop 03/13/18 at 11:49; Status DC Famotidine (Pepcid Vial) 20 mg BID IVP Last administered on 03/14/18at 10:11; Start 03/12/18 at 21:00 Lactated Ringer's 1,000 ml @ 160 mls/hr Q6H15M IV Last administered on at 04:08; Start 03/12/18 at 20:00 Morphine Sulfate (Morphine 10mg Syringe) 10 mg QIDPRN PRN SQ severe pain Last administered on 03/13/18at 20:02; Start 03/12/18 at 20:00 Lorazepam (Ativan) 2 mg 1X PRN PRN IV seizure; Start 03/12/18 at 20:00 Lorazepam (Ativan) 2 mg QID PO Last administered on 03/14/18at 14:00; Start at 23:59 Potassium Chloride/Sodium Chloride 1,000 ml @ 75 mls/hr 1X ONCE IV ; Start at 20:15; Stop 03/13/18 at 09:34; Status DC Multivitamins/ Minerals 10 ml/ Thiamine HCl 100 mg/Folic Acid 1 mg/Sodium Chloride 1,011.2 ml @ 100 mls/ hr DAILY IV Last administered on 03/14/18at 10: 11; Start 03/13/18 at 09:00; Stop 03/18/18 at 08:59 Chlordiazepoxide (Librium) 50 mg PRN Q1HR PRN PO For CIWA 8-14 Last administered on 03/13/18at 14:05; Start 03/12/18 at 23:45 Chlordiazepoxide (Librium) 100 mg PRN Q1HR PRN PO For CIWA 15 or greater Last administered on 03/13/18at 20:09; Start 03/12/18 at 23:45 Haloperidol Lactate (Haldol) 5 mg PRN Q4HRS PRN IM Hallucinatns,Confusn, Delirium Last administered on 03/14/18at 04:08; Start 03/12/18 at 23:45 Diphenhydramine HCl (Benadryl) 25 mg PRN Q15MIN PRN IVP EPS symptoms 2'Haldol admin; Start 03/12/18 at 23:45 Clonidine HCl (Catapres) 0.1 mg PRN Q1HR PRN PO SBP>180 OR DBP>100, MR X 3; Start 03/12/18 at 23:45 Lorazepam (Ativan) 2 mg PRN Q15MIN PRN IV ANXIETY / AGITATION Last administered on 03/13/18at 21:59; Start 03/12/18 at 23:45 Influenza Virus Vaccine (Afluria Trivalent [id number] Syringe) 0.5 ml ONCE ONCE VAX IM Last administered on 03/13/18at 11:54; Start 03/13/18 at 09:00; Stop at 09:01; Status DC Info (FLU VACCINE per PROTOCOL) 1 ea PRN 1X PRN MC PER PROTOCOL; Start at 01:00; Status Cancel Potassium Chloride 100 ml @ 50 mls/hr Q1H IV Last administered on 9/25/18at 10 :17; Start 03/13/18 at 07:15; Stop 03/13/18 at 09:14; Status DC Potassium Chloride 100 ml @ 50 mls/hr Q1H IV Last administered on 03/13/18at 18 :22; Start 03/13/18 at 15:45; Stop 03/13/18 at 17:45; Status DC Nicotine (Nicoderm Cq 7mg) 1 patch DAILY TD Last administered on 03/14/18at 10: 12; Start 03/13/18 at 19:15 Vancomycin HCl (Vanco Per Pharmacy) 1 each PRN DAILY PRN MC SEE COMMENTS; Start 03/14/18 at 07:45 Vancomycin HCl (Vancomycin Oral Solution) 125 mg [id number] PO Last administered on 03/14/18at 14:00; Start 03/14/18 at 09:00; Stop 03/23/18 at 21:01 Active Scripts Active Oxycodone Hcl 5 Mg Capsule 1 Cap PO TID Reported Chlordiazepoxide Hcl 25 Mg Capsule 25 Mg PO TID Patient Instructions Patient Instuctions Follow-up with Dr. duke on Monday for recheck of symptoms and to continue outpatient detox, as well as to recheck your potassium. Problem Qualifiers (1) Alcohol withdrawal: Complication of substance-induced condition: uncomplicated Qualified Codes: F10.230 - Alcohol dependence with withdrawal, uncomplicated MARY BOLDEN DO Mar 14, 2018 14:19
[2018-03-14] MEDS ORDERED: VANC500V PO (14:35)
--- NOTE | 2018-03-14 16:07 | NUR ---
Pt left unit in stable condition via wc accompanied by taxonomy teacher and family member. Pt given discharge, follow up, and medication instructions. Pt also given information for guidance center.
== END 2018-03-14 15:15 | disposition home or self-care (01) | DRG 371 ==
LOC: ER 18:39 → 1 SOUTH 19:00 → UNDOADMIN 19:00
PROVIDERS: ADMIT Neuromusculoskeletal Medicine & OMM; ATTEND Neuromusculoskeletal Medicine & OMM
DX: A04.72 Enterocolitis due to Clostridium difficile, not specified as recurrent (principal); E43 Unspecified severe protein-calorie malnutrition; K85.90 Acute pancreatitis without necrosis or infection, unspecified; E87.2 Acidosis; F10.231 Alcohol dependence with withdrawal delirium; K86.1 Other chronic pancreatitis; F10.230 Alcohol dependence with withdrawal, uncomplicated; D53.9 Nutritional anemia, unspecified; E87.6 Hypokalemia; F10.229 Alcohol dependence with intoxication, unspecified; F17.210 Nicotine dependence, cigarettes, uncomplicated; F41.9 Anxiety disorder, unspecified; K76.0 Fatty (change of) liver, not elsewhere classified; Y90.7 Blood alcohol level of 200-239 mg/100 ml; E86.0 Dehydration; Z90.49 Acquired absence of other specified parts of digestive tract; Z68.21 Body mass index [BMI] 21.0-21.9, adult; Z88.2 Allergy status to sulfonamides; Z88.8 Allergy status to other drugs, medicaments and biological substances
CPT/HCPCS: 36415; 74022; 74177; 80048; 80053; 80076; 80307; 81001; 82140; 82274; 82550; 83605; 83690; 84484; 84702; 85025; 85610; 85730; 86850; 86900; 86901; 87040; 87045; 87086; 87324; 90471; 90756; 93005; 94640; 96365; 96372; 96375; 99406; G0480; J1630; J2060; J2270; J2405; J3480; J7120; J7620; Q9966; Q9967; S0028; 99285-25; G0479; J7030; Q2035